=== PATIENT | female | born 1995 | race Hispanic/Latino ===

== ENCOUNTER 2018-10-11 21:50 | Inpatient (IN) | payer BC, SELFPAY ==
[2018-10-11 22:50] LABS: Absolute Lymphocytes (CBC) 2.4 K/uL (0.7-4.9); Absolute Monocytes 1.2 K/uL (0.1-1.3); Absolute Neutrophil 12.1 K/uL (1.8-8.0); Basophils % 0.4 % (0-1.3); Eosinophils % 0.4 % (0-4.4); Hematocrit 41.1 % (36.0-45.0); MCH 26.6 pg (27.0-35.0); MCV 80.3 fL (80-100); MPV 7.7 fL (7.6-11.3); Monocytes % 7.6 % (3.3-12.3); RBC Red Blood Cell Count 5.13 M/uL (3.86-4.86); Urine Bacteria LOADED /HPF (<20); Urine Culture Reflex Order NOT NEEDED; Urine RBC 20-50 /HPF (NONE SEEN)
[2018-10-11 22:55] LABS: Urine Blood 2+ (NEG); Urine Glucose NEGATIVE (NEG); Urine Protein 2+ (NEG)
[2018-10-11 23:08] LABS: Albumin 3.9 g/dL (3.4-5.0); Bilirubin Direct 0.1 mg/dL (0-0.2); Bilirubin Total 0.5 mg/dL (0.2-1.0); Potassium 3.3 mmol/L (3.5-5.1); Protein, Total 8.1 g/dL (6.4-8.2)
[2018-10-11] MEDS ORDERED: NA CHLORIDE 0.9% 1,000 ML ONE (23:14)
[2018-10-11] MEDS ORDERED: PROMETHAZINE 25 MG/ML VIAL ONE (23:14)
[2018-10-11] MEDS ORDERED: CEFTRIAXONE/SWI 1gm 1 GM/10 ML SYR ONE (23:27)
[2018-10-12] MEDS ORDERED: NA CHLORIDE 0.9% 1,000 ML ONE (00:41)
--- NOTE | 2018-10-12 01:16 | ER ---
Nurse's Notes [facility] Name: Alida Marcos Age: 23 yrs Sex: Female : 1995 Arrival Date: 10/11/2018 Time: 21:52 Bed 24 Private MD: Diagnosis: PYELONEPHRITIS;Lobulated, fused and horseshoe kidney Presentation: 10/11 22:14 Presenting complaint: Patient states: Abdominal pain in the epigastric area that aj1 radiates to the chest and vomiting for the past 3 days. Patient states that she was seen at the ER at [facility], they did some blood work, and she was diagnosed with a UTI and sent home for Rx for antibiotics and nausea medication, but she could not find a pharmacy to fill them. Patient states that she is still having a lot of pain, and nobody has told her what is causing her pain. Transition of care: patient was not received from another setting of care. Onset of symptoms was October 08, 2018. Risk Assessment: Do you want to hurt yourself or someone else? Patient reports no desire to harm self or others. Initial Sepsis Screen: Does the patient meet any 2 criteria? No. Patient's initial sepsis screen is negative. Does the patient have a suspected source of infection? Yes: Acute abdominal pain. Care prior to arrival: None. 22:14 Method Of Arrival: Ambulatory aj1 22:14 Acuity: SUSHILA 3 aj1 Triage Assessment: 22:17 General: Appears in no apparent distress. uncomfortable, Behavior is calm, cooperative, aj1 appropriate for age. Pain: Complains of pain in xyphoid area, mid-sternal area and epigastric area Pain currently is 8 out of 10 on a pain scale. Neuro: Level of Consciousness is awake, alert, obeys commands. Cardiovascular: Patient's skin is warm and dry. Respiratory: Airway is patent Respiratory effort is even, unlabored, Respiratory pattern is regular, symmetrical. GI: Reports upper abdominal pain, nausea, vomiting. 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 - Social history:: Smoking status: Patient uses tobacco products, denies chronic smoking, but will smoke occasionally. - Ebola Screening: : Patient denies travel to an Ebola-affected area in the 21 days before illness onset. Screenin:32 Abuse screen: Denies threats or abuse. Denies injuries from another. Nutritional rv screening: No deficits noted. Tuberculosis screening: No symptoms or risk factors identified. Fall Risk None identified. Assessment: 23:31 General: Appears in no apparent distress. uncomfortable, Behavior is calm, cooperative. rv Pain: Complains of pain in abdomen. Neuro: Level of Consciousness is awake, alert, obeys commands, Oriented to person, place, time, situation. Cardiovascular: Capillary refill < 3 seconds. Respiratory: Airway is patent. GI: Abdomen is round. : No signs and/or symptoms were reported regarding the genitourinary system. EENT: No signs and/or symptoms were reported regarding the EENT system. Derm: Skin is intact. Musculoskeletal: No signs and/or symptoms reported regarding the musculoskeletal system. 10/12 01:32 Reassessment: Patient appears in no apparent distress at this time. patient for rv admission. awaiting orders. Vital Signs: 10/11 22:17 BP 141 / 100; Pulse 72; Resp 18; Temp 98.0; Pulse Ox 100% on R/A; Height 5 ft. 2 in. aj1 (157.48 cm) (R); Pain 8/10; 23:33 BP 131 / 89; Pulse 72 MON; Resp 16 S; Pulse Ox 95% on R/A; rv 10/12 00:13 BP 130 / 73; Pulse 59 MON; Resp 15 S; Pulse Ox 96% on R/A; rv 01:32 BP 122 / 64; Pulse 69 MON; Resp 15 S; Pulse Ox 96% on R/A; rv 02:36 BP 142 / 86; Pulse 68; Resp 16; Pulse Ox 98% on R/A; rv ED Course: 10/11 21:30 Inserted saline lock: 20 gauge in left antecubital area, using aseptic technique. Blood rv collected. 21:30 Initial lab(s) drawn, by me, sent to lab. rv 21:52 Patient arrived in ED. es 22:17 Triage completed. aj1 22:17 Arm band placed on Patient placed in an exam room. aj1 22:23 Nini Brannon FNP-C is PHCP. snw 22:23 Jeannie Garcia MD is Attending Physician. snw 22:44 Radiology exam delayed due to test not completed at this time. bq 23:31 Urine Culture Sent. rv 23:32 Patient has correct armband on for positive identification. Bed in low position. Call rv light in reach. Side rails up X 1. Adult w/ patient. Pulse ox on. NIBP on. 23:[address] via wheelchair. kw1 10/12 00:00 CT completed. Patient tolerated procedure well. Patient moved back from CT. kw1 00:01 CT completed. Patient tolerated procedure well. Patient moved back from CT. kw1 00:02 CT Stone Protocol In Process Unspecified. EDMS 01:14 Meg Erickson MD is Hospitalizing Provider. snw 02:36 No provider procedures requiring assistance completed. Patient admitted, IV remains in rv place. intact. Administered Medications: 10/11 23:16 Drug: NS 0.9% 1000 ml Route: IV; Rate: 1 bolus; Site: left antecubital; rv 10/12 00:37 Follow up: IV Status: Completed infusion rv 10/11 23:16 Drug: Phenergan 12.5 mg Route: IVP; Site: left antecubital; rv 1216 00:37 Follow up: Response: Pain is decreased rv 10/11 23:22 Drug: Rocephin 1 grams Route: IV; Rate: calculated rate; Site: left antecubital; rv 1216 00:36 Follow up: IV Status: Completed infusion rv 00:37 Drug: NS 0.9% 1000 ml Route: IV; Rate: 125 ml/hr; Site: left antecubital; rv 02:37 Follow up: IV Status: Infusion continued upon admission rv 02:10 Drug: Phenergan 6.25 mg Route: IVP; Site: left antecubital; rv 02:37 Follow up: Response: Medication administered at discharge. rv Outcome: 01:16 Decision to Hospitalize by Provider. snw 02:37 Admitted to Tele accompanied by nurse, via wheelchair, room 410, with chart, Report rv called to hood 02:37 Condition: good 02:37 Instructed on the need for admit. 02:44 Patient left the ED. rv Signatures: Dispatcher [employer] Phoebe Hodge RN RN aj1 Nini Brannon, [employer] SERVICE TECHNICIAN-C [employer] SERVICE TECHNICIAN-Csnw Nury Zavala Betty bq Wilhelm, Kimberly kw1 Kevin Warren, RN RN rv
--- NOTE | 2018-10-12 01:16 | EDPHYS ---
Physician Documentation [facility] Name: Alida Marcos Age: 23 yrs Sex: Female : 1995 Arrival Date: 10/11/2018 Time: 21:52 Bed 24 Private MD: ED Physician Jeannie Garcia HPI: 10/11 22:43 This 23 yrs old Female presents to ER via Ambulatory with complaints of snw Vomiting, Abdominal Pain. 22:43 The patient presents to the emergency department with nausea, vomiting. Onset: The snw symptoms/episode began/occurred suddenly. Possible causes: unknown. The symptoms are aggravated by nothing. Associated signs and symptoms: Pertinent positives: abdominal pain, nausea. Severity of symptoms: At their worst the symptoms were moderate severe. It is unknown whether or not the patient has had similar symptoms in the past. Pt left [facility] ED about an hour ago. States she felt worse than when she left and started vomiting as soon as she got home. Pt came here instead.. 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 - Social history:: Smoking status: Patient uses tobacco products, denies chronic smoking, but will smoke occasionally. - Ebola Screening: : Patient denies travel to an Ebola-affected area in the 21 days before illness onset. ROS: 22:43 Constitutional: Negative for fever, chills, and weight loss, Eyes: Negative for injury, snw pain, redness, and discharge, ENT: Negative for injury, pain, and discharge, Neck: Negative for injury, pain, and swelling, Cardiovascular: Negative for chest pain, palpitations, and edema, Respiratory: Negative for shortness of breath, cough, wheezing, and pleuritic chest pain, Back: Negative for injury and pain, : Negative for injury, bleeding, discharge, and swelling, MS/Extremity: Negative for injury and deformity, Skin: Negative for injury, rash, and discoloration, Neuro: Negative for headache, weakness, numbness, tingling, and seizure. 22:43 Abdomen/GI: Positive for abdominal pain, nausea and vomiting, abdominal cramps, hematemesis. Exam: 22:42 Constitutional: This is a well developed, well nourished patient who is awake, alert, snw and in no acute distress. Head/Face: Normocephalic, atraumatic. Eyes: Pupils equal round and reactive to light, extra-ocular motions intact. Lids and lashes normal. Conjunctiva and sclera are non-icteric and not injected. Cornea within normal limits. Periorbital areas with no swelling, redness, or edema. ENT: Nares patent. No nasal discharge, no septal abnormalities noted. Tympanic membranes are normal and external auditory canals are clear. Oropharynx with no redness, swelling, or masses, exudates, or evidence of obstruction, uvula midline. Mucous membranes moist. Neck: Trachea midline, no thyromegaly or masses palpated, and no cervical lymphadenopathy. Supple, full range of motion without nuchal rigidity, or vertebral point tenderness. No Meningismus. Chest/axilla: Normal chest wall appearance and motion. Nontender with no deformity. No lesions are appreciated. Cardiovascular: Regular rate and rhythm with a normal S1 and S2. No gallops, murmurs, or rubs. Normal PMI, no JVD. No pulse deficits. Abdomen/GI: Soft, tender, with normal bowel sounds. No distension or tympany. No guarding or rebound. No evidence of tenderness throughout. + active vomiting Back: No spinal tenderness. No costovertebral tenderness. Full range of motion. Skin: Warm, dry with normal turgor. Normal color with no rashes, no lesions, and no evidence of cellulitis. MS/ Extremity: Pulses equal, no cyanosis. Neurovascular intact. Full, normal range of motion. Neuro: Awake and alert, GCS 15, oriented to person, place, time, and situation. Cranial nerves II-XII grossly intact. Motor strength 5/5 in all extremities. Sensory grossly intact. Cerebellar exam normal. Normal gait. Psych: Awake, alert, with orientation to person, place and time. Behavior, mood, and affect are within normal limits. 22:42 Respiratory: the patient does not display signs of respiratory distress, Respirations: normal, Breath sounds: are clear throughout. Vital Signs: 22:17 BP 141 / 100; Pulse 72; Resp 18; Temp 98.0; Pulse Ox 100% on R/A; Height 5 ft. 2 in. aj1 (157.48 cm) (R); Pain 8/10; 23:33 BP 131 / 89; Pulse 72 MON; Resp 16 S; Pulse Ox 95% on R/A; rv 12 00:13 BP 130 / 73; Pulse 59 MON; Resp 15 S; Pulse Ox 96% on R/A; rv 01:32 BP 122 / 64; Pulse 69 MON; Resp 15 S; Pulse Ox 96% on R/A; rv 02:36 BP 142 / 86; Pulse 68; Resp 16; Pulse Ox 98% on R/A; rv MDM: 10/11 22:25 Patient medically screened. snw 10/12 01:16 Data reviewed: vital signs, nurses notes. Data interpreted: Pulse oximetry: on room air snw is 96 %. Interpretation: acceptable. Counseling: I had a detailed discussion with the patient and/or guardian regarding: the historical points, exam findings, and any diagnostic results supporting the discharge/admit diagnosis, lab results, radiology results, the need for further work-up and treatment in the hospital. Physician consultation: Meg Erickson MD was called at 01:16, was contacted at 01:16, regarding admission, to the telemetry unit. 10/11 21:56 Order name: Urine Culture [facility] 10/11 21:56 Order name: Urine Microscopic Only; Complete Time: 22:56 snw 10/11 22:24 Order name: Basic Metabolic Panel; Complete Time: 23:14 snw 10/11 22:24 Order name: CBC with Diff; Complete Time: 22:56 snw 10/11 22:24 Order name: Hepatic Function; Complete Time: 23:14 snw 10/11 22:24 Order name: Lipase; Complete Time: 23:14 snw 10/11 22:24 Order name: Blood Culture Adult (2) snw 10/11 22:34 Order name: Urine Dipstick--Ancillary (enter results); Complete Time: 22:56 ar5 10/11 22:35 Order name: CT Stone Protocol [facility] 10/11 21:56 Order name: Urine Test (obtain specimen); Complete Time: 23:31 snw 10/11 21:56 Order name: Urine Dipstick-Ancillary (obtain specimen); Complete Time: 23:31 snw 12/15 22:24 Order name: IV Saline Lock; Complete Time: 23:31 snw 10/11 22:24 Order name: Labs collected and sent; Complete Time: 23:31 snw Administered Medications: 10/11 23:16 Drug: NS 0.9% 1000 ml Route: IV; Rate: 1 bolus; Site: left antecubital; rv 10/12 00:37 Follow up: IV Status: Completed infusion rv 10/11 23:16 Drug: Phenergan 12.5 mg Route: IVP; Site: left antecubital; rv 10/12 00:37 Follow up: Response: Pain is decreased rv 10/11 23:22 Drug: Rocephin 1 grams Route: IV; Rate: calculated rate; Site: left antecubital; rv 10/12 00:36 Follow up: IV Status: Completed infusion rv 00:37 Drug: NS 0.9% 1000 ml Route: IV; Rate: 125 ml/hr; Site: left antecubital; rv 02:37 Follow up: IV Status: Infusion continued upon admission rv 02:10 Drug: Phenergan 6.25 mg Route: IVP; Site: left antecubital; rv 02:37 Follow up: Response: Medication administered at discharge. rv Disposition: 03:00 Co-signature as Attending Physician, Jeannie Garcia MD. ma2 Disposition: 10/12/18 01:16 Hospitalization ordered by Meg Erickson for Inpatient Admission. Preliminary diagnosis are PYELONEPHRITIS, Lobulated, fused and horseshoe kidney. - Bed requested for Telemetry/MedSurg (Inpatient). - Status is Inpatient Admission. rv - Condition is Stable. - Problem is new. - Symptoms have worsened. UTI on Admission? Yes Signatures: Dispatcher [employer] EDND Phoebe Cristobal RN RN aj1 Jolie Vivar RN RN kl Therrien, Shelly, COMPOSITION ROLL MAKER AND CUTTER-C COMPOSITION ROLL MAKER AND CUTTER-Csnw Jeannie Garcia MD MD ma2 Kevin Warren RN RN rv Corrections: (The following items were deleted from the chart) 01:16 01:16 Hospitalization Ordered by Meg Erickson MD for Observation. Preliminary snw diagnosis is PYELONEPHRITIS; Lobulated, fused and horseshoe kidney. Bed requested for Telemetry/MedSurg (Inpatient). Status is Observation. Condition is Stable. Problem is new. Symptoms have worsened. UTI on Admission? Yes. sn 02:06 01:16 10/12/2018 01:16 Hospitalization Ordered by Meg Erickson MD for Inpatient kl Admission. Preliminary diagnosis is PYELONEPHRITIS; Lobulated, fused and horseshoe kidney. Bed requested for Telemetry/MedSurg (Inpatient). Status is Inpatient Admission. Condition is Stable. Problem is new. Symptoms have worsened. UTI on Admission? Yes. [facility] 02:44 02:06 10/12/2018 01:16 Hospitalization Ordered by Meg Erickson MD for Inpatient rv Admission. Preliminary diagnosis is PYELONEPHRITIS; Lobulated, fused and horseshoe kidney. Bed requested for Telemetry/MedSurg (Inpatient). Status is Inpatient Admission. Condition is Stable. Problem is new. Symptoms have worsened. UTI on Admission? Yes. kl
--- NOTE | 2018-10-12 01:58 | P.HP ---
Certification for Inpatient Patient admitted to: Inpatient With expected LOS: >2 Midnights Practitioner: I am a practitioner with admitting privileges, knowledge of patient current condition, hospital course, and medical plan of care. Services: Services provided to patient in accordance with Admission requirements found in Title 42 Section 412.3 of the Code of Federal Regulations Patient History Date of Service: 10/12/18 Reason for admission: pyelonephritis History of Present Illness: Ms Marcos is a 23 years old woman who start about 2 days ago with abdominal pain , localized in epigastric area associated with nausea and vomiting, burning urination and weakness. She denied fever or chills. The patient was not able to keep food down due to persistent vomiting. Last night, she went to [facility] [place] and was diagnosed with UTI, she was discharged home with oral antibiotics. She was not able to fill the parescription due to was late and could not found an open pharmacy. She came to ED for further evaluation due to persistent nausea and vomiting. Lab work was remarkable for leukocytosis 15.8K hypokalemia 3.3. CT abd/pelvis shows a horseshoe kidney, with strending fat and bilateral mild hydronephrosis. No signs of obstructive stone. Home medications list reviewed: Yes - Past Medical/Surgical History Past Medical History: Reviewed- Non-Contributory Past Surgical History: Reviewed- Non-Contributory - Social History Smoking Status: Current some day smoker Counseled patient to stop smoking for: less than 10 minutes Alcohol use: Yes CD- Drugs: No Place of Residence: Home Review of Systems 10-point ROS is otherwise unremarkable Physical Examination - Physical Exam General: Alert, In no apparent distress HEENT: Atraumatic, PERRLA, Mucous membr. moist/pink, EOMI, Sclerae nonicteric Neck: Supple, 2+ carotid pulse no bruit, No LAD, Without JVD or thyroid abnormality Respiratory: Clear to auscultation bilaterally, Normal air movement Cardiovascular: Regular rate/rhythm, Normal S1 S2 Gastrointestinal: Normal bowel sounds, Tenderness (diffuse) Musculoskeletal: No tenderness Integumentary: No rashes Neurological: Normal speech, Normal strength at 5/5 x4 extr, Normal tone, Normal affect Lymphatics: No axilla or inguinal lymphadenopathy - Studies Laboratory Data (last 24 hrs) 10/11/18 22:30: WBC 15.8 H, Hgb 13.6, Hct 41.1, Plt Count 389 10/11/18 22:30: Sodium 138, Potassium 3.3 L, BUN 12, Creatinine 0.90, Glucose 123 H, Total Bilirubin 0.5, AST 14 L, ALT 22, Alkaline Phosphatase 79, Lipase 99 Assessment and Plan - Problems (Diagnosis) (1) Pyelonephritis Current Visit: Yes Status: Acute (2) Hypokalemia Current Visit: Yes Status: Acute - Plan The patient will be admitted to the hospital due to pyelonephritis. Will start empiric treatment with IV Levaquin. Blood and Urine culture in process. - Advance Directives Does patient have a Living Will: No Does patient have a Durable POA for Healthcare: No - Code Status/Comfort Care Code Status Assessed: Yes Code Status: Full Code
[2018-10-12] MEDS ORDERED: PROMETHAZINE 25 MG/ML VIAL ONE (02:18)
[2018-10-12 03:01] VITALS: O2SAT 98
[2018-10-12 03:22] VITALS: BMI 39.2
[2018-10-12] MEDS ORDERED: ONDANSETRON 4 MG/2 ML VIAL IV PRN (03:39)
[2018-10-12] MEDS ORDERED: ACETAMINOPHEN 500 MG TAB PO PRN (03:39)
[2018-10-12] MEDS ORDERED: Levofloxacin 750mg IV 750 MG/150 ML BAG IV SCH (04:00)
[2018-10-12] MEDS: KETOROLAC 30 MG/ML INJ IV PRN ×2 (04:01→16:06)
--- NOTE | 2018-10-12 06:46 | RAD REPORT ---
EXAM DESCRIPTION: CT - Stone Protocol - 10/12/2018 2:23 am CLINICAL HISTORY: Abdominal pain. Epigastric pain and vomiting COMPARISON: None. TECHNIQUE: Computed axial tomography of the abdomen pelvis was obtained without oral or IV contrast. Lack of IV and oral contrast limits evaluation of solid organs, bowel, and vessels. Coronal reformat millie images were obtained and reviewed. Preliminary report generated by virtual radiologic and reviewed prior to dictation All CT scans are performed using dose optimization technique as appropriate and may include automated exposure control or mA/KV adjustment according to patient size. FINDINGS: Horseshoe kidney. Extrarenal pelves. Tiny nonobstructing renal calculi. Ureteral calculus is not seen. A bladder calculus is not noted The liver, spleen, pancreas and adrenals appear grossly normal There is no evidence of diverticulitis. The appendix appears normal IMPRESSION: Horseshoe kidney with tiny nonobstructing renal calculi
[2018-10-12] MEDS ORDERED: HYDROCODONE/APAP 7.5/325 MG TAB PO PRN (07:02)
[2018-10-12] MEDS ORDERED: TRAMADOL HCL 50 MG TAB PO PRN (07:02)
[2018-10-12] MEDS ORDERED: POTASSIUM CL SA 10 MEQ TAB PO ONE ×2 (07:15→14:00)
[2018-10-12] MEDS: ONDANSETRON 4 MG/2 ML VIAL IV PRN ×2 (07:58→15:59)
[2018-10-12] MEDS ORDERED: POTASSIUM 25 MEQ EFFERV TAB PO ONE (09:00)
[2018-10-12] MEDS: ENOXAPARIN 40 MG/0.4 ML SQ SCH (09:15)
[2018-10-12] MEDS: CEFTRIAXONE/SWI 1gm 1 GM/10 ML SYR IVP SCH (09:16)
--- NOTE | 2018-10-12 09:55 | P.PN ---
Subjective Date of Service: 10/12/18 Primary Care Provider: None Chief Complaint: pyelonephritis Subjective: Other (Patient with nausea this morning) Physical Examination - Vital Signs Temperature: 98.2 F Blood Pressure: 149/98 Pulse: 77 Respirations: 20 Pulse Ox (%): 99 - Physical Exam General: Alert, In no apparent distress, Oriented x3, Cooperative HEENT: Atraumatic Neck: Supple Respiratory: Clear to auscultation bilaterally, Normal air movement Cardiovascular: Normal pulses, Regular rate/rhythm Gastrointestinal: Normal bowel sounds, Soft and benign, Non-distended, No tenderness, No masses, No rebound, No guarding Musculoskeletal: No erythema, No tenderness, No warmth Integumentary: No tenderness/swelling, No erythema, No warmth, No cyanosis Neurological: Normal speech, Normal strength at 5/5 x4 extr, Normal tone, Normal affect - Studies Laboratory Data (last 24 hrs) 10/11/18 22:30: WBC 15.8 H, Hgb 13.6, Hct 41.1, Plt Count 389 10/11/18 22:30: Sodium 138, Potassium 3.3 L, BUN 12, Creatinine 0.90, Glucose 123 H, Total Bilirubin 0.5, AST 14 L, ALT 22, Alkaline Phosphatase 79, Lipase 99 Medications List Reviewed: Yes Assessment & Plan Discharge Plan: Home Plan to discharge in: 24 Hours Physician Review Additional Text: Impression: Acute pyelonephritis with noted horseshoe kidney and tiny nonobstructive calculi Elevated blood pressure Obesity, BMI 39 Nausea and vomiting likely related to pyelonephritis Hypokalemia Plan: Acute pyelonephritis with noted horseshoe kidney and tiny nonobstructive calculi : Will change Levaquin to Rocephin. Continue IV fluids. Encourage oral intake. Will provide incentive spirometer. Encourage ambulation. Will recheck lab again today. Patient desires to go home. If much improved later today will consider discharge if not likely tomorrow. Urine and blood cultures pending at this time. Elevated blood pressure: Blood pressure elevated. No history of hypertension. Will continue to monitor closely. If this remains elevated patient may require medication at discharge. Obesity, BMI 39: Lifestyle modification education will be provided. Nausea and vomiting likely related to pyelonephritis: Will provide medication for nausea. Encourage oral intake. Will reassess. Hypokalemia: Likely related to nausea and vomiting. Will replace appropriately. Time Spent Managing Pts Care (In Minutes): 55
[2018-10-12 12:38] LABS: Magnesium 2.6 mg/dL (1.8-2.4); Potassium 3.9 mmol/L (3.5-5.1)
[2018-10-12 13:22] LABS: Absolute Lymphocytes (CBC) 3.1 K/uL (0.7-4.9); Absolute Monocytes 0.9 K/uL (0.1-1.3); Absolute Neutrophil 9.1 K/uL (1.8-8.0); Basophils % 0.2 % (0-1.3); Eosinophils % 0.4 % (0-4.4); Hematocrit 37.4 % (36.0-45.0); Lymphocytes % 23.7 % (15.3-44.8); MCH 27.2 pg (27.0-35.0); MCV 80.2 fL (80-100); MPV 7.9 fL (7.6-11.3); Monocytes % 7.1 % (3.3-12.3); RBC Red Blood Cell Count 4.66 M/uL (3.86-4.86)
[2018-10-12] MEDS ORDERED: PROMETHAZINE 25 MG/ML VIAL IV ONE (18:40)
[2018-10-13] MEDS: KETOROLAC 30 MG/ML INJ IV PRN ×2 (00:18→06:33)
[2018-10-13] MEDS: ONDANSETRON 4 MG/2 ML VIAL IV PRN ×3 (00:18→12:15)
[2018-10-13 06:34] LABS: Absolute Lymphocytes (CBC) 3.3 K/uL (0.7-4.9); Absolute Monocytes 1.1 K/uL (0.1-1.3); Absolute Neutrophil 6.4 K/uL (1.8-8.0); Basophils % 0.2 % (0-1.3); Eosinophils % 0.8 % (0-4.4); Hematocrit 39.1 % (36.0-45.0); MCH 27.9 pg (27.0-35.0); MCV 79.8 fL (80-100); MPV 7.5 fL (7.6-11.3); Monocytes % 10.2 % (3.3-12.3)
[2018-10-13 06:37] LABS: Magnesium 2.5 mg/dL (1.8-2.4)
[2018-10-13 07:08] LABS: Barbiturates NEGATIVE (NEGATIVE); Benzodiazepines NEGATIVE (NEGATIVE); Cocaine NEGATIVE (NEGATIVE); METHAMPHETAM NEGATIVE (NEGATIVE); Methadone NEGATIVE (NEGATIVE); Opiates NEGATIVE (NEGATIVE); Phencyclidine NEGATIVE (NEGATIVE); THC Cannibis NEGATIVE (NEGATIVE)
[2018-10-13] MEDS: ENOXAPARIN 40 MG/0.4 ML SQ SCH (08:35)
[2018-10-13] MEDS: CEFTRIAXONE/SWI 1gm 1 GM/10 ML SYR IVP SCH (08:39)
[2018-10-13 09:25] VITALS: TEMP 97.8
--- NOTE | 2018-10-13 09:34 | P.DS ---
Admission Date: 10/12/18 Discharge Date: 10/13/18 Primary Care Provider: None Disposition: ROUTINE DISCHARGE Discharge Condition: GOOD Reason for Admission: pyelonephritis Consultations: none Procedures: CT scan: COMPARISON: None. TECHNIQUE: Computed axial tomography of the abdomen pelvis was obtained without oral or IV contrast. Lack of IV and oral contrast limits evaluation of solid organs, bowel, and vessels. Coronal reformatted images were obtained and reviewed. Preliminary report generated by [employer] and reviewed prior to dictation All CT scans are performed using dose optimization technique as appropriate and may include automated exposure control or mA/KV adjustment according to patient size. FINDINGS: Horseshoe kidney. Extrarenal pelves. Tiny nonobstructing renal calculi. Ureteral calculus is not seen. A bladder calculus is not noted The liver, spleen, pancreas and adrenals appear grossly normal There is no evidence of diverticulitis. The appendix appears normal IMPRESSION: Horseshoe kidney with tiny nonobstructing renal calculi Medical Problem list: Acute pyelonephritis with noted horseshoe kidney and tiny nonobstructive calculi prior CT scan, urine culture positive for enterobacter Elevated blood pressure Obesity, BMI 39 Nausea and vomiting likely related to pyelonephritis Hypokalemia GERD Anxiety Brief History of Present Illness: 23-year-old female presented to emergency room with increased nausea and vomiting with noted UTI. Patient had been seen at [facility] and prescribed antibiotic therapy. She was not able to get medication. Patient found to have possible pyelonephritis patient admitted for treatment Hospital Course: Patient presented with acute pyelonephritis with noted horseshoe kidney and tiny nonobstructive calculi on CT scan. During the course of her stay her condition improved. White count within normal range at discharge. Urine culture positive for enterobacter. At discharge patient will continue with Bactrim DS 1 pill twice daily for 14 days. UTI prevention education provided. Education on horseshoe kidney and renal calculi also provided. Recommendation is to recheck urine culture after treatment to monitor resolution. Patient may benefit with urology evaluation as an outpatient to further address. Patient had nausea and vomiting during the course of her stay. Patient received IV fluids. At times patient appeared to be self inducing vomiting. This was witnessed. This to be monitored closely as an outpatient. Patient denies history of bulimia. Patient had increase anxiety. Recommendation is for the patient follow up with her PCP to further address. Patient may benefit with evaluation for underlying anxiety disorder. Will provide medication- Zofran 4 mg 3 times a day as needed for nausea. Patient likely has GERD. Patient will continue with Protonix 40 mg 1 pill once daily. Patient with obesity, BMI 39. Lifestyle modification education will be provided. Patient had elevated blood pressure likely related to illness and nausea and vomiting. Recommendation is to monitor her blood pressures daily at home. If her blood pressure remains above 140/90 consistently she is to contact her PCP for further recommendation. Patient may require medication in the future. Vital Signs/Physical Exam: Temp Pulse Resp BP Pulse Ox 97.8 F 68 18 118/55 L 99 10/13/18 08:00 10/13/18 08:00 10/13/18 08:00 10/13/18 04:00 10/13/18 08:00 General: Alert, In no apparent distress, Oriented x3, Cooperative, Other ( Patient with increased anxiety and emotional at times) HEENT: Atraumatic Neck: Supple Respiratory: Clear to auscultation bilaterally, Normal air movement Cardiovascular: Normal pulses, Regular rate/rhythm Gastrointestinal: Normal bowel sounds, Soft and benign, Non-distended, No tenderness, No masses, No rebound, No guarding Musculoskeletal: No erythema, No tenderness, No warmth Integumentary: No tenderness/swelling, No erythema, No warmth, No cyanosis Neurological: Normal speech, Normal strength at 5/5 x4 extr, Normal tone, Abnormal affect (Increased anxiety) Laboratory Data at Discharge: WBC 10.9 K/uL (4.3-10.9) D 10/13/18 06:09 Hgb 13.7 g/dL (12.0-15.0) 10/13/18 06:09 Hct 39.1 % (36.0-45.0) 10/13/18 06:09 Plt Count 384 K/uL (152-406) 10/13/18 06:09 Sodium 140 mmol/L (136-145) 10/13/18 06:09 Potassium 4.0 mmol/L (3.5-5.1) 10/13/18 06:09 BUN 10 mg/dL (7-18) 10/13/18 06:09 Creatinine 0.90 mg/dL (0.55-1.3) 10/13/18 06:09 Glucose 90 mg/dL (74-106) 10/13/18 06:09 Magnesium 2.5 mg/dL (1.8-2.4) H 10/13/18 06:09 Total Bilirubin 0.5 mg/dL (0.2-1.0) 10/11/18 22:30 AST 14 U/L (15-37) L 10/11/18 22:30 ALT 22 U/L (12-78) 10/11/18 22:30 Alkaline Phosphatase 79 U/L (45-117) 10/11/18 22:30 Lipase 99 U/L (73-393) 10/11/18 22:30 Home Medications: Ondansetron HCl [Zofran] 4 mg PO TID PRN #5 tablet 10/12/18 Pantoprazole [Protonix Tab] 40 mg PO DAILY #30 tab 10/13/18 Sulfamethoxazole/Trimethoprim [Bactrim Ds Tablet] 1 each PO BID #28 tablet 10/13 New Medications: Ondansetron HCl [Zofran] 4 mg PO TID PRN #5 tablet PRN Reason: Nausea Pantoprazole [Protonix Tab] 40 mg PO DAILY #30 tab Sulfamethoxazole/Trimethoprim [Bactrim Ds Tablet] 1 each PO BID #28 tablet Patient Discharge Instructions: 1. Patient will need to follow up and establish care with a PCP to follow up this hospitalization. 2. Patient presented with acute pyelonephritis with noted horseshoe kidney and tiny nonobstructive calculi on CT scan. During the course of her stay her condition improved. White count within normal range at discharge. Urine culture positive for enterobacter. At discharge patient will continue with Bactrim DS 1 pill twice daily for 14 days. UTI prevention education provided. Education on horseshoe kidney and renal calculi also provided. Recommendation is to recheck urine culture after treatment to monitor resolution. Patient may benefit with urology evaluation as an outpatient to further address. 3. Patient had nausea and vomiting during the course of her stay. Patient received IV fluids and medication. This may be complicated with underlying anxiety. Recommendation is for the patient follow up with her PCP to further address. Patient may benefit with evaluation for underlying anxiety disorder. Will provide medication-Zofran 4 mg 3 times a day as needed for nausea. 4. Patient likely has GERD. Patient will continue with Protonix 40 mg 1 pill once daily. 5. Patient with obesity, BMI 39. Lifestyle modification education will be provided. 6. Patient had elevated blood pressure likely related to illness and nausea and vomiting. Recommendation is to monitor her blood pressures daily at home. If her blood pressure remains above 140/90 consistently she is to contact her PCP for further recommendation. Patient may require medication in the future. Diet: GI soft Activity: Ad khalif Time spent managing pt's care (in minutes): 55
[2018-10-13 13:58] VITALS: BP 136/82
== END 2018-10-13 13:10 | disposition home or self-care (01) | DRG 690 ==
LOC: ER 21:50 → ERHOLD 10-12 01:49 → 4TH 10-12 02:41
PROVIDERS: ADMIT Internal Medicine; ATTEND Family Medicine
DX: N10 Acute pyelonephritis (principal); N13.6 Pyonephrosis; B96.89 Other specified bacterial agents as the cause of diseases classified elsewhere; Q63.1 Lobulated, fused and horseshoe kidney; N20.0 Calculus of kidney; R03.0 Elevated blood-pressure reading, without diagnosis of hypertension; E66.01 Morbid (severe) obesity due to excess calories; Z68.39 Body mass index [BMI] 39.0-39.9, adult; E87.6 Hypokalemia; R11.2 Nausea with vomiting, unspecified; K21.9 Gastro-esophageal reflux disease without esophagitis; F41.9 Anxiety disorder, unspecified; F17.210 Nicotine dependence, cigarettes, uncomplicated
CPT/HCPCS: 36415; 74176; 76377; 80048; 80076; 80307; 81003; 81015; 83690; 83735; 84132; 84145; 85025; 87040; 87077; 87086; 87088; 87186; 96361; 96365; 96375; 99285; J0696; J1650; J2405; J2550; J7030

== ENCOUNTER 2019-07-12 09:07 | Emergency (ER) | payer BC ==
--- OUTSIDE RECORDS SUMMARY | 2019-07-12 09:09 | XMS REPORT ---
:1995 [facility] Address [address] [place] [address] Dr. Garcia. [address] [place] [id number] Care Team Providers Name Role Phone Unavailable Unavailable Unavailable Problems This patient has no known problems. Allergies, Adverse Reactions, Alerts This patient has no known allergies or adverse reactions. Medications This patient has no known medications.
[2019-07-12] MEDS ORDERED: FAMOTIDINE 20 MG/2 ML VIAL IV ONE (09:45)
[2019-07-12] MEDS ORDERED: KETOROLAC 30 MG/ML INJ ONE (09:45)
[2019-07-12] MEDS ORDERED: ONDANSETRON 4 MG/2 ML VIAL ONE (09:45)
[2019-07-12] MEDS ORDERED: NA CHLORIDE 0.9% 1,000 ML ONE (09:45)
[2019-07-12 09:51] LABS: Absolute Lymphocytes (CBC) 2.4 K/uL (0.7-4.9); Basophils % 0.4 % (0-1.3); Hematocrit 38.9 % (36.0-45.0); MPV 7.8 fL (7.6-11.3); RBC Red Blood Cell Count 4.78 M/uL (3.86-4.86)
[2019-07-12 10:04] LABS: ALT/SGPT 28 U/L (12-78); AST/SGOT 13 U/L (15-37); Alkaline Phosphatase 77 U/L (45-117); BUN Blood Urea Nitrogen 13 mg/dL (7-18); Bicarbonate 24 mmol/L (21-32); Bilirubin Direct < 0.1 mg/dL (0-0.2); Bilirubin Total 0.2 mg/dL (0.2-1.0); Glucose Level 97 mg/dL (74-106); Lipase 73 U/L (73-393); Potassium 3.9 mmol/L (3.5-5.1); Protein, Total 7.8 g/dL (6.4-8.2); Sodium Level 143 mmol/L (136-145)
[2019-07-12 10:53] LABS: Urine Blood 1+ (NEG); Urine Glucose NEGATIVE (NEG); Urine Protein NEGATIVE (NEG); Urine Specific Gravity 1.025 (1.005-1.030)
[2019-07-12] MEDS ORDERED: CEFTRIAXONE/SWI 1gm 1 GM/10 ML SYR ONE (11:14)
--- NOTE | 2019-07-12 11:27 | RAD REPORT ---
EXAM DESCRIPTION: CTAbdomen Pelvis W Contrast - 07/12/2019 11:03 am CLINICAL HISTORY: Abdominal pain. ABD PAIN COMPARISON: No comparisons TECHNIQUE: Biphasic CT imaging of the abdomen and pelvis was performed with 100 ml non-ionic IV cont rast. All CT scans are performed using dose optimization technique as appropriate and may include automated exposure control or mA/KV adjustment according to patient size. FINDINGS: The lung bases are clear. The liver, spleen, pancreas, adrenal glands are within normal limits. Horseshoe kidney noted without evidence of hydronephrosis. No bowel obstruction, free air, free fluid or abscess. The appendix is normal. No evidence of signi ficant lymphadenopathy. No suspicious bony findings. IMPRESSION: No acute intra-abdominal or pelvic finding.
--- NOTE | 2019-07-12 11:49 | ER ---
Nurse's Notes [facility] Name: Alida Marcos Age: 23 yrs Sex: Female : 1995 Arrival Date: 07/12/2019 Time: 09:10 Bed 13 Private MD: Diagnosis: Urinary tract infection, site not specified;Vomiting;Other chest pain Presentation: 07/12 09:20 Presenting complaint: Lower abdominal pain x 2 days, headache, subjective fever, and hb burning chest pain after vomiting this morning x 2. Transition of care: patient was not received from another setting of care. Onset of symptoms was July 11, 2019. Risk Assessment: Do you want to hurt yourself or someone else? Patient reports no desire to harm self or others. Initial Sepsis Screen: Does the patient meet any 2 criteria? No. Patient's initial sepsis screen is negative. Does the patient have a suspected source of infection? No. Patient's initial sepsis screen is negative. Care prior to arrival: None. 09:20 Method Of Arrival: Ambulatory hb 09:20 Acuity: SUSHILA 3 hb LINING BASTER: 09:22 LMP 07/08/2019 hb Historical: - Allergies: 09:22 No Known Allergies; hb - Immunization history:: Adult Immunizations up to date. - Social history:: Smoking status: Patient/guardian denies using tobacco. - Ebola Screening: : No symptoms or risks identified at this time. Screenin:30 Abuse screen: Denies threats or abuse. Denies injuries from another. Nutritional jl7 screening: No deficits noted. Tuberculosis screening: No symptoms or risk factors identified. Fall Risk IV access (20 points). Total Craig Fall Scale indicates No Risk (0-24 pts). Assessment: 09:25 General: Appears in no apparent distress. uncomfortable, well groomed, well developed, sv Behavior is calm, cooperative, appropriate for age. Pain: Complains of pain in back, chest and abdomen Pain currently is 7 out of 10 on a pain scale. Quality of pain is described as burning, Is intermittent, episodic. Neuro: Level of Consciousness is awake, alert, obeys commands, Oriented to person, place, time, situation, Moves all extremities. Full function Gait is steady, Speech is normal. Cardiovascular: Reports chest pain, vomiting. Respiratory: Respiratory effort is even, unlabored, Respiratory pattern is regular, symmetrical. GI: Abdomen is flat, Abd is soft and non tender X 4 quads. Reports nausea, vomiting. GI: Reports indigestion. Derm: Skin is pink, warm \T\ dry. 09:55 Reassessment: Patient appears in no apparent distress at this time. No changes from sv previously documented assessment. Patient and/or family updated on plan of care and expected duration. Pain level reassessed. Patient is alert, oriented x 3, equal unlabored respirations, skin warm/dry/pink. Pt reports taking 3 Advil before coming, informed Cam GALVEZ before administering Toradol. He stated ok to give. 11:00 Reassessment: Patient appears in no apparent distress at this time. No changes from sv previously documented assessment. Patient and/or family updated on plan of care and expected duration. Pain level reassessed. Patient is alert, oriented x 3, equal unlabored respirations, skin warm/dry/pink. 11:30 Reassessment: Patient appears in no apparent distress at this time. Patient and/or jl7 family updated on plan of care and expected duration. Pain level reassessed. Patient is alert, oriented x 3, equal unlabored respirations, skin warm/dry/pink. Vital Signs: 09:22 BP 141 / 94; Pulse 82; Resp 16; Temp 98.2(O); Pulse Ox 97% on R/A; Weight 87.09 kg; hb Height 5 ft. 2 in. (157.48 cm); Pain 7/10; 10:12 BP 123 / 77; Pulse 66; Resp 16; Pulse Ox 99% ; sv 12:05 BP 128 / 78; Pulse 70; Resp 16 S; Pulse Ox 100% on R/A; jl7 09:22 Body Mass Index 35.12 (87.09 kg, 157.48 cm) hb ED Course: 09:10 Patient arrived in ED. rg4 09:13 Cam Agosto PA is PHCP. cp 09:13 Augie Arguelles MD is Attending Physician. cp 09:20 Alejandrina Rogel, RN is Primary Nurse. hb 09:21 Triage completed. hb 09:22 Arm band placed on. hb 09:29 Isis Nelson, RN is Primary Nurse. sv 09:30 Initial lab(s) drawn, by me, sent to lab. Strep swab sent to lab. Inserted saline lock: sv 20 gauge in right antecubital area, using aseptic technique. Blood collected. Flushed right antecubital with 5 ml normal saline. 10:03 Strep Sent. sv 10:03 Basic Metabolic Panel Sent. sv 10:03 CBC with Diff Sent. sv 10:03 Creatinine for Radiology Sent. sv 10:03 Hepatic Function Sent. sv 10:03 Lipase Sent. sv 10:03 Urine --Ancillary (enter results) Sent. sv 10:03 Urine Dipstick--Ancillary (enter results) Sent. sv 10:22 Radiology exam delayed due to test not completed at this time. ka 10:41 Influenza Screen (a \T\ B) Sent. sv 10:[address] Scan. sv 11:30 Patient has correct armband on for positive identification. Placed in gown. Bed in low jl7 position. Call light in reach. Side rails up X 1. 12:05 No provider procedures requiring assistance completed. IV discontinued, intact, jl7 bleeding controlled, No redness/swelling at site. Pressure dressing applied. Administered Medications: 09:50 Drug: Pepcid 20 mg Route: IVP; Site: right antecubital; sv 10:30 Follow up: Response: No adverse reaction sv 11:33 Follow up: Response: No adverse reaction jl7 09:50 Drug: NS 0.9% 1000 ml Route: IV; Rate: 1 bolus; Site: right antecubital; sv 11:00 Follow up: Response: No adverse reaction; IV Status: Completed infusion; IV Intake: sv 1000ml 09:52 Drug: Zofran 4 mg Route: IVP; Site: right antecubital; sv 10:30 Follow up: Response: No adverse reaction sv 11:33 Follow up: Response: No adverse reaction jl7 10:00 Drug: TORadol 30 mg Route: IVP; Site: right antecubital; sv 11:00 Follow up: Response: No adverse reaction sv 11:32 Not Given (Wrong pharmacy order): Rocephin - (cefTRIAXone) 1 grams IVPB once over 30 jl7 mins; (mix in 50 mL NS) 11:33 Drug: Rocephin 1 grams Route: IV; Rate: calculated rate; Site: right antecubital; jl7 11:36 Follow up: Response: No adverse reaction; IV Status: Completed infusion jl7 Intake: 11:00 IV: 1000ml; Total: 1000ml. sv Outcome: 11:49 Discharge ordered by . willis 12:05 Discharged to home ambulatory. jl7 12:05 Condition: stable 12:05 Discharge instructions given to patient, Instructed on discharge instructions, follow up and referral plans. medication usage, Demonstrated understanding of instructions, follow-up care, medications, Prescriptions given X 3. 12:06 Patient left the ED. jl7 Signatures: Isis Nelson RN RN sv Cam Agosto PA PA cp Aguilera, Katelyn ka Baxter, Heather, RN RN Meche Grossman rg4 Jaquan Ferreira RN RN jl7 Corrections: (The following items were deleted from the chart) 09:22 09:20 Presenting complaint: Lower abdominal pain x 2 days, headache, subjective hb fever,burning chest pain after vomiting this morning x 2 hb 10:03 09:00 Pepcid 20 mg IVP in right antecubital sv sv
--- NOTE | 2019-07-12 11:50 | EDPHYS ---
Physician Documentation [facility] Name: Alida Marcos Age: 23 yrs Sex: Female : 1995 Arrival Date: 07/12/2019 Time: 09:10 Bed 13 Private MD: ED Physician Augei Arguelles HPI: 07/12 09:29 This 23 yrs old Female presents to ER via Ambulatory with complaints of cp Abdominal Pain, Back Pain, Chest Pain. 09:30 The patient presents with abdominal pain in the lower abdomen. cp 09:30 Onset: The symptoms/episode began/occurred 2 day(s) ago. The symptoms radiate to cp Associated signs and symptoms: Pertinent positives: chest pain, fever, headache, nausea, vomiting, cough, sore throat, Pertinent negatives: constipation, palpitations, shortness of breath. Modifying factors: the symptoms are aggravated by pressure. [employer]IVER: 09:22 LMP 07/08/2019 hb Historical: - Allergies: 09:22 No Known Allergies; hb - Immunization history:: Adult Immunizations up to date. - Social history:: Smoking status: Patient/guardian denies using tobacco. - Ebola Screening: : No symptoms or risks identified at this time. ROS: 09:35 Constitutional: Negative for body aches, chills, fever, poor PO intake. cp 09:35 Eyes: Negative for injury, pain, redness, and discharge. cp 09:35 ENT: Positive for sore throat, Negative for drainage from ear(s), ear pain, sinus congestion, sinus pain, difficulty swallowing, difficulty handling secretions. 09:35 Cardiovascular: Positive for chest pain, Negative for edema, palpitations. 09:35 Respiratory: Positive for cough, Negative for shortness of breath, wheezing. 09:35 Abdomen/GI: Positive for abdominal pain, nausea, vomiting, Negative for diarrhea, constipation, anorexia. 09:35 Back: Positive for radiated pain. 09:35 : Negative for urinary symptoms, vaginal bleeding, vaginal discharge. 09:35 Skin: Negative for cellulitis, rash. 09:35 Neuro: Positive for headache, Negative for altered mental status, dizziness, weakness. 09:35 All other systems are negative. Exam: 09:40 Constitutional: The patient appears in no acute distress, alert, awake, cp non-diaphoretic, non-toxic, well developed, well nourished. 09:40 Head/Face: Normocephalic, atraumatic. cp 09:40 Eyes: Periorbital structures: appear normal, Conjunctiva: normal, no exudate, no injection, Sclera: no appreciated abnormality, Lids and lashes: appear normal, bilaterally. 09:40 ENT: External ear(s): are unremarkable, Ear canal(s): are normal, clear, TM's: bulging, is not appreciated, bilaterally, dullness, bilaterally, erythema, is not appreciated, bilaterally, Nose: is normal, Mouth: is normal, Posterior pharynx: is normal, airway is patent, no erythema, no exudate. 09:40 Neck: ROM/movement: is normal, is supple, without pain, no range of motions limitations, no meningismus, no nuchal rigidity. 09:40 Chest/axilla: Inspection: normal, Palpation: is normal, no crepitus, no tenderness. 09:40 Cardiovascular: Rate: normal, Rhythm: regular, Edema: is not appreciated, JVD: is not appreciated. 09:40 Respiratory: the patient does not display signs of respiratory distress, Respirations: normal, no use of accessory muscles, no retractions, no splinting, no tachypnea, labored breathing, is not present, Breath sounds: are clear throughout, no decreased breath sounds, no stridor, no wheezing. 09:40 Abdomen/GI: Inspection: abdomen appears normal, Bowel sounds: active, all quadrants, Palpation: soft, in all quadrants, mild abdominal tenderness, in the right lower quadrant and left lower quadrant, rebound tenderness, is not appreciated, involuntary guarding, is not appreciated. 09:40 Back: pain, that is mild, of the low back area, ROM is normal. 09:40 Skin: no rash present. 09:40 Neuro: Orientation: to person, place \T\ time. Mentation: is normal, Cerebellar function: is grossly normal, Motor: moves all fours, strength is normal, Sensation: is normal. 12:00 ECG was reviewed by the Attending Physician. cp Vital Signs: 09:22 BP 141 / 94; Pulse 82; Resp 16; Temp 98.2(O); Pulse Ox 97% on R/A; Weight 87.09 kg; hb Height 5 ft. 2 in. (157.48 cm); Pain 7/10; 10:12 BP 123 / 77; Pulse 66; Resp 16; Pulse Ox 99% ; sv 12:05 BP 128 / 78; Pulse 70; Resp 16 S; Pulse Ox 100% on R/A; jl7 09:22 Body Mass Index 35.12 (87.09 kg, 157.48 cm) hb MDM: 09:23 Patient medically screened. cp 10:00 Differential diagnosis: appendicitis, cholecystitis, Cholelithiasis, gastritis, Peptic cp Ulcer Disease, Perf. Duodenal Ulcer, Perf. Gastric Ulcer, Pyelonephritis, Ureterolithiasis, urinary tract infection. 11:48 Data reviewed: vital signs, nurses notes, lab test result(s), radiologic studies, CT cp scan, and as a result, I will discharge patient. 11:48 Counseling: I had a detailed discussion with the patient and/or guardian regarding: the cp historical points, exam findings, and any diagnostic results supporting the discharge/admit diagnosis, lab results, radiology results, to return to the emergency department if symptoms worsen or persist or if there are any questions or concerns that arise at home. Response to treatment: the patient's symptoms have markedly improved after treatment, and as a result, I will discharge patient. Special discussion: Based on the patient's Hx, exam, and Dx evaluation, there is no indication for emergent surgery or inpatient Tx. It is understood by the patient/guardian that if the Sx's persist or worsen they need to return immediately for re-evaluation. 07/12 09:29 Order name: Basic Metabolic Panel 07/12 09:29 Order name: CBC with Diff 07/12 09:29 Order name: Creatinine for Radiology 07/12 09:29 Order name: Hepatic Function 07/12 09:29 Order name: Lipase 07/12 09:29 Order name: Strep 07/12 09:47 Order name: Influenza Screen (a \T\ B) 07/12 09:51 Order name: Urine Dipstick--Ancillary (enter results) [facility] 07/12 09:51 Order name: Urine --Ancillary (enter results) [facility] 07/12 09:53 Order name: CBC with Automated Diff; Complete Time: 10:57 EDMS 07/12 09:57 Order name: Group A Streptococcus Rapid Sc; Complete Time: 10:57 EDMS 07/12 10:57 Interpretation: Reviewed. 07/12 10:01 Order name: Creatinine (Radiology Only); Complete Time: 10:57 EDGA 07/12 10:05 Order name: Basic Metabolic Panel; Complete Time: 10:57 [facility] 07/12 10:57 Interpretation: Normal except: CL 109. 07/12 10:05 Order name: Liver (Hepatic) Function; Complete Time: 10:57 [facility] 07/12 11:46 Interpretation: Normal except: AST 13; GLOB 3.8. 07/12 09:29 Order name: IV Saline Lock; Complete Time: 10:03 07/12 09:29 Order name: Labs collected and sent; Complete Time: 10:03 07/12 09:29 Order name: Urine Dipstick-Ancillary (obtain specimen); Complete Time: 10:03 07/12 09:43 Order name: CT Abd/Pelvis - IV Contrast Only 07/12 10:05 Order name: Lipase; Complete Time: 10:57 [facility] 07/12 10:36 Order name: Influenza Screen (A ; Complete Time: 10:57 [facility] 07/12 10:54 Order name: Urine --Ancillary; Complete Time: 10:57 [facility] 07/12 10:54 Order name: Urine Dipstick-Ancillary; Complete Time: 10:57 [facility] 07/12 10:57 Interpretation: Normal except: UBLD 1+; U NIT POSITIVE; UESTR 1+. 07/12 11:31 Order name: CT; Complete Time: 11:45 [facility] 07/12 11:47 Order name: EKG; Complete Time: 11:47 07/12 09:29 Order name: Urine Test (obtain specimen); Complete Time: 10:03 07/12 11:46 Order name: PO challenge; Complete Time: 12:01 07/12 11:47 Order name: EKG - Nurse/Tech; Complete Time: 12:01 EC:00 Rate is 59 beats/min. Rhythm is regular. GA interval is normal. QRS interval is normal. cp QT interval is normal. T waves are Inverted in lead III. Interpreted by me. Reviewed by me. Administered Medications: 09:50 Drug: Pepcid 20 mg Route: IVP; Site: right antecubital; sv 10:30 Follow up: Response: No adverse reaction sv 11:33 Follow up: Response: No adverse reaction jl7 09:50 Drug: NS 0.9% 1000 ml Route: IV; Rate: 1 bolus; Site: right antecubital; sv 11:00 Follow up: Response: No adverse reaction; IV Status: Completed infusion; IV Intake: sv 1000ml 09:52 Drug: Zofran 4 mg Route: IVP; Site: right antecubital; sv 10:30 Follow up: Response: No adverse reaction sv 11:33 Follow up: Response: No adverse reaction jl7 10:00 Drug: TORadol 30 mg Route: IVP; Site: right antecubital; sv 11:00 Follow up: Response: No adverse reaction sv 11:32 Not Given (Wrong pharmacy order): Rocephin - (cefTRIAXone) 1 grams IVPB once over 30 jl7 mins; (mix in 50 mL NS) 11:33 Drug: Rocephin 1 grams Route: IV; Rate: calculated rate; Site: right antecubital; jl7 11:36 Follow up: Response: No adverse reaction; IV Status: Completed infusion jl7 Disposition: 07/13 09:05 Co-signature as Attending Physician, Augie Arguelles MD I agree with the assessment and kdr plan of care. Disposition: 07/12/19 11:49 Discharged to Home. Impression: Urinary tract infection, site not specified, Vomiting, Other chest pain. - Condition is Stable. - Discharge Instructions: Nonspecific Chest Pain, Nausea and Vomiting, Adult, Urinary Tract Infection, Adult. - Prescriptions for Ibuprofen 800 mg Oral Tablet - take 1 tablet by ORAL route every 8 hours As needed take with food; 30 tablet. Zofran 4 mg Oral Tablet - take 1 tablet by ORAL route every 12 hours As needed; 10 tablet. Bactrim DS 800- 160 mg Oral Tablet - take 1 tablet by ORAL route every 12 hours for 7 days; 14 tablet. - Medication Reconciliation Form, Thank You Letter, Antibiotic Education, Prescription Opioid Use form. - Follow up: Private Physician; When: 2 - 3 days; Reason: Worsening of condition. - Problem is new. - Symptoms have improved. Signatures: Dispatcher [employer] Isis Mehta RN RN sv Rittger, Kevin, MD MD kdr Page, Corey, PA PA cp Baxter, Heather, RN RN Jaquan Ferreira RN RN jl7 Corrections: (The following items were deleted from the chart) 07/12 11:51 11:49 07/12/2019 11:49 Discharged to Home. Impression: Urinary tract infection, site cp not specified; Vomiting. Condition is Stable. Forms are Medication Reconciliation Form, Thank You Letter, Antibiotic Education, Prescription Opioid Use. Follow up: Private Physician; When: 2 - 3 days; Reason: Worsening of condition. Problem is new. Symptoms have improved. cp 12:06 11:51 07/12/2019 11:49 Discharged to Home. Impression: Urinary tract infection, site jl7 not specified; Vomiting; Other chest pain. Condition is Stable. Discharge Instructions: Nonspecific Chest Pain, Nausea and Vomiting, Adult, Urinary Tract Infection, Adult. Prescriptions for Ibuprofen 800 mg Oral Tablet - take 1 tablet by ORAL route every 8 hours As needed take with food; 30 tablet, Zofran 4 mg Oral Tablet - take 1 tablet by ORAL route every 12 hours As needed; 10 tablet, Bactrim DS 800-160 mg Oral Tablet - take 1 tablet by ORAL route every 12 hours for 7 days; 14 tablet. and Forms are Medication Reconciliation Form, Thank You Letter, Antibiotic Education, Prescription Opioid Use. Follow up: Private Physician; When: 2 - 3 days; Reason: Worsening of condition. Problem is new. Symptoms have improved. cp
[2019-07-12 12:16] VITALS: TEMP 98.2
[2019-07-12 12:19] VITALS: BP 128/78; O2SAT 100
--- NOTE | 2019-07-13 11:35 | EKG ---
Test Date: 2019-07-12 Test Time: 11:54:47 [employer]: SHERRY MEASUREMENT RESULTS: Intervals: Rate: 59 NH: 150 QRSD: 96 QT: 452 QTc: 447 [place]: P: 53 NH: 150 QRS: 28 T: 25 INTERPRETIVE STATEMENTS: Sinus bradycardia with sinus arrhythmia Otherwise normal ECG No previous ECG available for comparison Electronically Signed On 07-13-19 11:31:27 CDT by Ryan Burnette
== END 2019-07-12 12:06 | disposition home or self-care (01) ==
LOC: ER 09:07
DX: N39.0 Urinary tract infection, site not specified (principal); R11.10 Vomiting, unspecified
CPT/HCPCS: 96361; 93005; 87070; 85025; 80048; 36415; 81025; 80076; 87081; 81003; 83690; 87804 ×2; 74177; 96375; 96374; 99284; Q9967; J0696; J7030; J2405

== ENCOUNTER 2022-08-17 14:19 | Emergency (ER) | payer BC, SELFPAY ==
--- OUTSIDE RECORDS SUMMARY | 2022-08-17 14:29 | XMS REPORT | Continuity of Care Document ---
:1995 Author Organization [facility] t Address [address] [place] [address] Care Team Providers Name Role Phone Annabel Andersen Attending Clinician Unavailable ROYA Attending Clinician Unavailable Nini Colmenares Attending Clinician [phone] Magdalene Hogan Attending Clinician [phone] Lyndon Mitchell MD Attending Clinician Heide Mann Attending Clinician Unknown, Attending Attending Clinician Unavailable Annabel Andersen Admitting Clinician Unavailable ROYA Admitting Clinician Unavailable Payers Payer Name Policy Type Policy Number Effective Date Expiration Date S rommel [facility] [id number] 2019 PPO 00:00:00 BC[facility] OF [facility] [id number] 2014 OF [facility] 00:00:00 [facility] [id number] (PPO) Problems Condition Condition Condition Status Onset Resolution Last Treating Co mments Source Name Details Category Date Date Treatment Clinician Date Mixed Mixed Problem Active [place] anxiety Anxiety -15 Communi and and 00:00: ty depressive Depressive 00 Ho spita disorder Disorder l Clinics Acute Acute Problem Active [place] maxillary Maxillary 1-15 Comm uni sinusitis Sinusitis 00:00: [facility] Abnormal Abnormal Problem Active [place] blood Blood 1-15 Communi pressure Pressure 00:00: [facility] Clinics Primiparou Primiparou Disease Active 2018-10 U nivers s in first s in first 0-16 it [place] of [place] [address] [place] [address] Absence of Absence of Disease Active 2018-10 U nivers menstruati menstruati 0-16 it y of on on 00:00: [address] BMI BMI Disease Active 2018-10 Univers 40.0-44.9, 40.0-44.9, 0-16 it y of adult adult 00:00: [address] Supervisio Supervisio Disease Active 2018-10 U nivers n of other n of other 0-16 it y of high risk high risk 00:[place] pregnancie pregnancie 00 Me dical s, first s, first Branch trimester trimester Pyelonephr Pyelonephr Disease Active 2017-10 U nivers itis itis 2-18 ity of 00:00: [address] Allergies, Adverse Reactions, Alerts Allergy Allergy Status Severity Reaction(s) Onset Inactive Treating Comm ents Source Name Type Date Date Clinician No Known DA Active U 2019-0 [facility] Allergie 3-16 Clear s 00:00: [place] 00 [facility] No Known DA Active U 2020-0 [facility] Allergie 3-16 Clear s 00:00: [place] 00 [facility] NO KNOWN Drug Active Univers ALLERGIE Class ity of S [facility] Social History Social Habit Start Date Stop Date Quantity Comments Source ASSERTION 2019-07-21 University of 00:00:00 [facility] Exposure to Not sure [place] of SARS-CoV-2 [facility] (event) [place] Sex Assigned At Universit y of [facility] Tobacco use and 2020-07-05 2020-07-05 Never used Universit y of exposure 00:00:00 00:00:00 [facility] Alcohol intake 2020-07-05 2020-07-05 Current drinker Unive rsity of 00:00:00 00:00:00 of alcohol [facility] (finding) [place] Alcohol Comment 2019-08-11 2019-08-11 socially-last Univer sity of 00:00:00 00:00:00 saturday [facility] History of 2019-08-11 Smoker University of tobacco use 00:00:00 [facility] Smoking Status Start Date Stop Date Source Former smoker 2020-07-05 00:00:00 2020-07-05 [facility]00 [facility] Medications Ordered Filled Start Stop Current Ordering Indication Dosage Frequency Signature Comments Components Source Medication Medication Date Date Medication? Clinician (SIG) Name Name Yes Unive rs vit/iron 1-15 ity of fum/folic 02:07: [place] [address] Medical ( 1 Branch + 1 ORAL) foLIC acid Yes 1mg Take 1 mg Un tejinder 1 mg tablet 1-15 by mouth ity of 02:07: daily. [address] calcium Yes Take by Univers carbonate 1-15 mouth. ity of (CALCIUM 02:07: [place] 500 ORAL) [address] [place] [address] Yes Unive rs vit/iron 1-15 ity of fum/folic 02:07: [place] [address] Medical ( 1 Branch + 1 ORAL) foLIC acid Yes 1mg Take 1 mg Un tejinder 1 mg tablet 1-15 by mouth ity of 02:07: daily. [address] calcium Yes Take by Univers carbonate 1-15 mouth. ity of (CALCIUM 02:07: [place] 500 ORAL) [address] [place] [address] azithromyci Yes [id number] 250mg Take 1 Univers n 250 mg 1-14 tablet by ity of tablet 00:00: mouth [place] [address] SEE-INSTRU Medical CTIONS. Branch Take 500 mg day 1, then 250 mg days 2 to 5. azithromyci Yes [id number] 250mg Take 1 Univers n 250 mg 1-14 tablet by ity of tablet 00:00: mouth [place] [address] SEE-INSTRU Medical CTIONS. Branch Take 500 mg day 1, then 250 mg days 2 to 5. phenazopyri 2017-10- No 200mg Take 1 Un tejinder dine 200 mg 2-15 -14 tablet by it y of tablet 00:00: 00:00 mouth 3 [place] 00 :00 (three) Medical times [place] daily. ondansetron 2017-10- No 4mg Take 1 Uni vers (ZOFRAN 2-15 - tablet by ity of ODT) 4 mg 00:00: 00:00 mouth [place] disintegrat 00 :00 every 8 Medic al ing tablet (eight) Branch hours as needed for Nausea and Vomiting (N/V). albuterol albuterol No albuterol [place] sulfate 2 sulfate 2 sulfate 2 Communi mg tablet mg tablet mg tablet ty TAKE 2 TAKE 2 TAKE 2 Hospita TABLETS BY TABLETS BY TABLETS BY l MOUTH EVERY MOUTH EVERY MOUTH Clinics 6 HOURS 6 HOURS EVERY 6 NEEDED FOR NEEDED FOR HOURS CONTRACTION CONTRACTION NEEDED FOR S S CONTRACTIO NS fluoxetine fluoxetine No 1 Q1D fluoxetine [place] 10 mg 10 mg 10 mg Communi tablet Take tablet Take tablet ty 1 tablet 1 tablet Take 1 Hospi ta every day every day tablet l by oral by oral every day Clin ics route as route as by oral directed directed route as for 30 for 30 directed days. days. for 30 days. hydrocortis hydrocortis No hydrocorti [place] one 2.5 % one 2.5 % sone 2.5 % Communi topical topical topical ty cream APPLY cream APPLY cream Hospita 1 TOPICAL 1 TOPICAL APPLY 1 l APPLCATION APPLCATION TOPICAL Clinics 3 TIMES A 3 TIMES A APPLCATION DAY DAY 3 TIMES A NEEDED FOR NEEDED FOR DAY ITCHING ITCHING NEEDED FOR ITCHING metoclopram metoclopram No metoclopra [place] lashay 10 mg lashay 10 mg mide 10 mg Communi tablet TAKE tablet TAKE tablet ty 1 TABLET BY 1 TABLET BY TAKE 1 Hospita MOUTH MOUTH TABLET BY l BEFORE BEFORE MOUTH Clinics MEALS MEALS BEFORE (TWICE A (TWICE A MEALS DAY) DAY) (TWICE A DAY) Nexplanon Nexplanon No Nexplanon [place] 68 mg 68 mg 68 mg Communi subdermal subdermal subdermal ty implant implant implant Hospit a l Clinics ondansetron ondansetron No ondansetro [place] 4 mg 4 mg n 4 mg Communi disintegrat disintegrat disintegra ty ing tablet ing tablet ting Hos edi TAKE 1 TAKE 1 tablet l TABLET BY TABLET BY TAKE 1 Cli nics MOUTH UNDER MOUTH UNDER TABLET BY THE TONGUE THE TONGUE MOUTH EVERY 4 6 EVERY 4 6 UNDER THE HOURS HOURS TONGUE NEEDED NEEDED EVERY 4 6 HOURS NEEDED Zithromax Zithromax No Zithromax [place] Z-Eddi 250 Z-Eddi 250 Z-Eddi 250 Communi mg tablet mg tablet mg tablet ty TAKE 2 TAKE 2 TAKE 2 Hospita TABLETS TABLETS TABLETS l (500 MG) BY (500 MG) BY (500 MG) Clinics ORAL ROUTE ORAL ROUTE BY ORAL ONCE DAILY ONCE DAILY ROUTE ONCE FOR 1 DAY FOR 1 DAY DAILY FOR THEN 1 THEN 1 1 DAY THEN TABLET (250 TABLET (250 1 TABLET MG) BY ORAL MG) BY ORAL (250 MG) ROUTE ONCE ROUTE ONCE BY ORAL DAILY FOR 4 DAILY FOR 4 ROUTE ONCE DAYS DAYS DAILY FOR 4 DAYS fluoxetine fluoxetine No fluoxetine [place] 10 mg 10 mg 10 mg Communi tablet TAKE tablet TAKE tablet ty 1 TABLET 1 TABLET TAKE 1 Hospi ta EVERY DAY EVERY DAY TABLET l BY ORAL BY ORAL EVERY DAY Clin ics ROUTE ROUTE BY ORAL DIRECTED DIRECTED ROUTE FOR 30 FOR 30 DIRECTED DAYS. DAYS. FOR 30 DAYS. Nexplanon Nexplanon No Nexplanon [place] 68 mg 68 mg 68 mg Communi subdermal subdermal subdermal ty implant implant implant Hospit a l Clinics Immunizations Ordered Immunization Filled Immunization Date Status Commen ts Source Name Name Influenza, Influenza, 2019-09-29 Completed [place] Communi ty injectable, MDCK, injectable, MDCK, 16:25:00 Hospital Clinics preservative free, preservative free, quadrivalent quadrivalent Influenza, Influenza, 2019-09-29 Completed [place] Communi ty injectable, MDCK, injectable, MDCK, 16:25:[address] [facility] preservative free, preservative free, quadrivalent quadrivalent Vital Signs Vital Name Observation Time Observation Value Comments Source BP Diastolic 2021-01-11 00:00:00 73 mm[Hg] [facility] [place] s Height 2021-01-11 00:00:00 63 [in_i] [facility] [place] s BMI (Body Mass 2021-01-11 00:00:00 39.9 kg/m2 [facility]) [facility] s BP Systolic 2021-01-11 00:00:00 127 mm[Hg] [facility] [place] s Body Weight 2021-01-11 00:00:00 3600 [oz_av] [facility] [place] s BP Diastolic 2020-11-11 00:00:00 86 mm[Hg] [facility] [place] s Height 2020-11-11 00:00:00 63 [in_i] [facility] [place] s BMI (Body Mass 2020-11-11 00:00:00 39.3 kg/m2 [facility] s BP Systolic 2020-11-11 00:00:00 136 mm[Hg] [facility] [place] s Body Weight 2020-11-11 00:00:00 3552 [oz_av] [facility] [place] s Systolic blood 2020-11-11 04:48:00 154 mm[Hg] Univer sity of pressure [facility] Diastolic blood 2020-11-11 04:48:00 99 mm[Hg] Unive rsity of pressure [facility] Heart rate 2020-11-11 04:48:00 78 /min Universi ty of [facility] Body temperature 2020-11-11 04:48:00 36.89 [place] Univ ersity of [facility] Branch Respiratory rate 2020-11-11 04:48:00 16 /min Univ ersity of [facility] Body height 2020-11-11 04:48:00 160 cm Universi ty of [place] [facility] Oxygen saturation in 2020-11-11 04:48:00 99 /min University of Arterial blood by [place] [employer] [place] Pulse oximetry Branch Systolic blood 2019-11-11 02:08:00 142 mm[Hg] Univer sity of pressure [facility] Diastolic blood 2019-11-11 02:08:00 92 mm[Hg] Unive rsity of pressure [facility] Heart rate 2019-11-11 02:06:00 99 /min Universi ty of [place] [facility] [place] Body temperature 2019-11-11 02:06:00 36.28 [place] Univ ersity of [place] [facility] Respiratory rate 2019-11-11 02:06:00 22 /min Univ ersity of [place] [facility] Body height 2019-11-11 02:06:00 160 cm Universi ty [facility] [place] [facility] Body weight 2019-11-11 02:06:00 111.131 kg Universi ty [facility] [place] [facility] BMI 2019-11-11 02:06:00 43.40 kg/m2 Universi ty [facility] [place] [facility] Oxygen saturation in 2019-11-11 02:06:00 95 /min University of Arterial blood by [place] Medi [place] Pulse oximetry Branch Procedures Procedure Date / Time Performed Performing Clinician Yesi minor [id number] 2020-02-22 00:00:00 RAMCA.01 [facility] Repair of Meniscus 2012-04-12 00:00:00 [facility] Delivery [facility] Plan of Care Planned Activity Planned Date Details Comments Source Instructions [facility] Encounters Start End Encounter Admission Attending Care Care Encounter Source Date/Time Date/Time Type Type Clinicians Facility Department ID 2021 Emergency [facility] [id number] Univers 17:27:31 ity of [facility] 2020-03-22 Inpatient Ganesh, [facility] [id number] [facility] 12:30:00 Annabel 92 [facility] [place] 2020-02-20 Inpatient Ganesh, [facility] ДМИТРИЙ [id number] [facility] 05:34:00 Annabel 00 [facility] [place] 2020-02-04 Inpatient ANA Andersen, [facility] OBANTE [id number] [facility] 15:25:00 Annabel 41 [facility] [place] 2020-02-01 Inpatient Ganesh, [facility] ДМИТРИЙ [id number] [facility] 13:55:00 Annabel 95 [facility] [place] 2020-01-31 Inpatient Ganesh, [facility] ДМИТРИЙ [id number] [facility] 16:47:00 Annabel 79 [facility] [place] 2020-01-11 Inpatient Ganesh, [facility] ДМИТРИЙ [id number] [facility] 08:44:00 Annabel 56 [facility] [place] 2021-01-12 2021-01-12 Outpatient [facility] 688 [place] 10:20:00 10:20:00 _L 318 Commun [facility] [address] [facility] 2021-01-11 2021-01-11 Outpatient [facility] [id number] [place] 10:32:00 10:32:00 _L 317 Commun i [address] 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 2021-01-11 2021-01-11 Outpatient Dedra [facility] [id number] 00:00:00 00:00:00 Nini [id number] 2020-12-22 2020-12-22 Outpatient [place] [id number] [place] 01:01:00 01:01:00 _L 316 Commun i ty Hospita l Clinics 2020-12-22 2020-12-22 Outpatient [facility] 68 [place] 01:01:00 01:01:00 _L 225 Commun i ty Hospita l Clinics 2020-11-17 2020-11-17 Outpatient [place] [id number] [place] 03:33:00 03:33:00 _L 121 Commun i ty Hospita l Clinics 2020-11-14 2020-11-14 Outpatient [place] [address] [place] 09:23:00 09:23:00 _L 118 Commun i ty Hospita l Clinics 2020-11-11 2020-11-11 Outpatient [place] [id number] [place] 11:43:00 11:43:00 _L [address] Commun [address] 2020-11-11 2020-11-11 Outpatient [facility] 06d [id number] 00:00:00 00:00:00 , Magdalene [id number] Lauren [id number] 2020-11-11 2020-11-11 Magdalene Aguilar [facility] [place] - [place] 202 [id number] [place] 00:00:00 00:00:00 STEFANO FelderC: [address], [place] [address] , Ph. 2020-11-10 2020-11-11 Emergency [facility] [id number] Univers 22:53:00 00:00:00 Lyndon Mckeon [id number] i ty of [place] [id number] [facility] [id number] [facility] [place] 084 Branch 2020-02-04 2020-02-04 Outpatient PETER Andersen [id number] [facility] 16:22:00 16:22:00 Annabel Reyna [facility] 2019-11-10 2019-11-10 Urgent Heide Nieves [facility] [id number] Univers 19:59:56 20:23:50 Care Unknown, Attending Health [id number] ity of [facility] [id number] [facility] [id number] Vt dical es 370 [facility] Results Test Description Test Time Test Comments Results Result Comments Source [facility] 2020-02-25 TRIMESTER 14:04:00 RUN DATE: 02/25/20 [facility] PAGE 1 RUN TIME: 1711 Specimen Inquiry RUN USER: INTERFACE ALEXANDER IENT: DMITRIY CARDENAS LOC: MariJAYCEE U #: [id number] AGE/SX: 24/F ROOM: [facility] RE02/20/20REG DR: Annabel Andersen MD : 95 BED: A DIS: 02/23/20 STATUS: DIS IN TLOC: SPEC #: [id number] RECD: 02/20/20 STATUS: TRICIA AVERY #: [id number] SHASTA: 02/20/20- SUBM DR: Annabel Andersen MD ENTERED: 02/23/20 SP TYPE: PLACIII OTHR DR: Vaughn Moore Jr, MD ORDERED: LEVEL V SURGICA CODES: [id number] - PLACENTA, NOS COPIES TO: Vaughn Moore Jr, MD [address] [place] [address] Annabel Andersen MD [address] [place] [address] PROCEDURES: LEVEL V SURGICA (Incomplete) TISSUES: PLACENTA, NOS - PLACENTA - TWINS CLINICAL HISTORY 24 year old, 33.4 weeks, L2, section, twins (kr) FINAL DIAGNOSIS Placenta, twin gestation: - dichorionic diamniotic, separate - combined placental weight: actual 775 gms/expected combined weight 687 gms - placenta #1 - third trimester villous architecture - no inflammation of umbilical cord or membranes - umbilical cord: insertion 3 cm from margin, 3-vessel, 34 cm length - actual placental weight: 370 gms - placenta #2 - third trimester villous architecture - patchy villous edema - no inflammation of umbilical cord or membranes - umbilical cord: velamentous insertion, 3-vessel, 32 cm length - actual placental weight: 405 gms CPT code(s): 39715 x2 cds/wpd CONTINUED ON NEXT PAGE RUN DATE: 02/25/20 [facility] PAGE 2 RUN TIME: 1711 Specimen Inquiry RUN USER: INTERFACE TAMEKA Way #: [id number] PATIENT: DMITRIY CARDENAS #[id number] (Continued)-------- -------- GROSS DESCRIPTION The specimen was received in a container, labeled with the patient's name, unit number and designated "placenta, twins" and is the product of a twin separate disc placentas with attached membranes and umbilical cords. There are no dividing membranes. The following attributes are observed: PLACENTA #1: Cord insertion: 3 cm from margin Cord length: 34 cm Number of vessels: 3 Cord color: He Other cord findings: Slightly edematous surface findings: Steel blue, wrinkled, glistening with focal subchorionic fibrin deposition Vasculature: Displays unremarkable blood vasculature Membranes rupture site: Marginal Membrane color: He Other membrane findings: Thickened The trimmed placental weight: 370 gm Disk measurement: 16.0 x 14.5 x 3.0 cm in greatest dimension Accessory lobes: None Maternal surface: Lobulated and intact Parenchyma: Red, beefy, and spongy with peripheral fibrosis Parenchyma lesions: None Cassettes: A1 through A4 PLACENTA #2: Cord insertion: Velamentous Cord length: 32 cm Number of vessels: 3 Cord color: He Other cord findings: Edematous surface findings: Steel blue, wrinkled, glistening with focal subchorionic fibrin deposition Vasculature: Displays unremarkable blood vasculature Membranes rupture site: 1 cm to margin Membrane color: He Other membrane findings: Thickened The trimmed placental weight: 405 gm Disk measurement: 16.0 x 15.0 x 3.0 cm in greatest dimension Accessory lobes: None Maternal surface: Lobulated and intact Parenchyma: Red, beefy, and spongy with peripheral fibrosis Parenchyma lesions: None Cassettes: A5 through A8 rosy/verónica 02/24/20 CONTINUED ON NEXT PAGE RUN DATE: 02/25/20 [facility] PAGE 3 RUN TIME: 1711 Specimen Inquiry RUN USER: INTERFACE TAMEKA Way #: [id number] PATIENT: RONALDDMITRIY #[id number] (Continued)-------- -------- Signed Reilly Galelgos Octaviano 02/25/20 1404 END OF REPORT AG HEPATITIS B SURFACE 2020-02-22 19:27:00 Test Item Value Reference Range Interpretation Comme nts AG HEPATITIS B SURFACE (test code = HBSAG) NONREACTIVE NONREACTIVE Comments to Journeyman Powerhouse Operator: USE BLOOD IN LAB, DO NOT NEED CBC FROM THISAB HEPATITIS C [id number] 19:27:00 Test Item Value Reference Range Interpretation Comments AB HEPATITIS C (test code = NONREACTIVE NONREACTIVE HCVAB) SIGNAL TO CUTOFF (test code = 0.14 <0.80 N CUTOFF) Comments to Journeyman Powerhouse Operator: USE BLOOD IN LAB, DO NOT NEED CBC FROM THISAB [id number] 19:27:00 Test Item Value Reference Range Interpretation Comments AB TREPONEMA (test code = TREPAB) NONREACTIVE NONREACTIVE Comments to Journeyman Powerhouse Operator: USE BLOOD IN LAB, DO NOT NEED CBC FROM THISAB HIV 1 2 2020-02-22 19:27:00 Test Item Value Reference Range Interpretation Comments AB HIV 1 2 (test NONREACTIVE NONREACTIVE [id number] 4th Gen HIV Ag/Ab Combo Screen Comments to Journeyman Powerhouse Operator: USE BLOOD IN LAB, DO NOT NEED CBC FROM THISHGB HCT 2020-02-21 05:25:00 Test Item Value Reference Range Interpretation Comments HEMOGLOBIN (test code = 9.1 g/dL 10.7-13.9 L Resu lts verified by HGB) repeat analysis HEMATOCRIT (test code = 28.5 % 32.1-42.1 L Resu lts verified by HCT) repeat analysis AG HEPATITIS B [id number] 02:58:00 Test Item Value Reference Range Interpretation Comments AG HEPATITIS B SURFACE (test code NONREACTIVE NONREACTIVE = HBSAG) Comments to Journeyman Powerhouse Operator: USE BLOOD IN LAB, DO NOT NEED CBC FROM THISAB HEPATITIS C [id number] 02:58:00 Test Item Value Reference Range Interpretation Comments AB HEPATITIS C (test code = NONREACTIVE NONREACTIVE HCVAB) SIGNAL TO CUTOFF (test code = 0.14 <0.80 N CUTOFF) Comments to Journeyman Powerhouse Operator: USE BLOOD IN LAB, DO NOT NEED CBC FROM THISAB [id number] 02:58:00 Test Item Value Reference Range Interpretation Comments AB TREPONEMA (test code = TREPAB) NONREACTIVE NONREACTIVE Comments to Journeyman Powerhouse Operator: USE BLOOD IN LAB, DO NOT NEED CBC FROM THISAG HEPATITIS B [id number] 02:08:00 Test Item Value Reference Range Interpretation Comments AG HEPATITIS B SURFACE (test code NONREACTIVE NONREACTIVE = HBSAG) Comments to Journeyman Powerhouse Operator: USE BLOOD IN LAB, DO NOT NEED CBC FROM THISAB HEPATITIS C [id number] 02:08:00 Test Item Value Reference Range Interpretation Comments AB HEPATITIS C (test code = HCVAB) NONREACTIVE SIGNAL TO CUTOFF (test code = CUTOFF) <0.80 Comments to Journeyman Powerhouse Operator: USE BLOOD IN LAB, DO NOT NEED CBC FROM THISAB [id number] 02:08:00 Test Item Value Reference Range Interpretation Comments AB TREPONEMA (test code = TREPAB) NONREACTIVE NONREACTIVE Comments to Journeyman Powerhouse Operator: USE BLOOD IN LAB, DO NOT NEED CBC FROM THIS PROTHROMBIN [id number] 16:42:00 Test Item Value Reference Range Interpretation Comments PROTHROMBIN TIME PATIENT (test code 11.6 secs 10.4-12.4 N = PTP) THROMBOPLASTIN TIME [id number] 16:42:00 Test Item Value Reference Range Interpretation Comments THROMBOPLASTIN TIME PARTIAL (test 33.6 secs 22-38 N code = PTT) PIH [id number] 16:36:00 Test Item Value Reference Range Interpretation Comments CREATININE (test code = CREAT) 0.6 mg/dL 0.5-1.0 N SGOT/AST (test code = AST) 14 units/L 15-37 L SGPT/ALT (test code = ALT) 20 units/L 12-78 N LACTIC DEHYDROGENASE(LDH) (test 172 units/L 81-234 N code = LDH) : *CHEMISTRY 7 [id number] 16:32:00 Test Item Value Reference Range Interpretation Comments SODIUM (test code = NA) 137 mEq/L 135-145 N POTASSIUM (test code = K) 4.0 mEq/L 3.5-5.0 N CHLORIDE (test code = CL) 102 mEq/L 100-115 N CARBON DIOXIDE (test code = CO2) 21 mEq/L 22-31 L ANION GAP (test code = GAP) 18.40 10-20 N GLUCOSE (test code = GLU) 88 mg/dL 65-110 N BLOOD [place] NITROGEN (test code = 8 mg/dL 7-18 N BUN) GLOMERULAR FILTRATION RATE (test 123 ml/min >60 N code = GFR) CREATININE (test code = CREAT) 0.6 mg/dL 0.5-1.0 N CALCIUM (test code = CA) 8.5 mg/dL 8.4-10.2 N [id number] 16:32:00 Test Item Value Reference Range Interpretation Comments AMYLASE (test code = EVELYN) 38 units/L 30-110 N [id number] 16:32:00 Test Item Value Reference Range Interpretation Comments LIPASE (test code = LIP) 67 units/L 73-393 L CBC W/AUTO [id number] 16:28:00 Test Item Value Reference Range Interpretation Comments WHITE BLOOD CELL (test code = WBC) 18.8 K/mm3 6.6-12.1 H RED BLOOD CELL (test code = RBC) 4.37 M/mm3 3.45-5.01 N HEMOGLOBIN (test code = HGB) 11.4 g/dL 10.7-13.9 N HEMATOCRIT (test code = HCT) 35.7 % 32.1-42.1 N MEAN CELL VOLUME (test code = MCV) 82 fL 84.1-94.8 L MEAN CELL HGB (test code = MCH) 26.1 pg 27-35 L MEAN CELL HGB CONCETRATION (test 31.9 gm/dL 32.2-34.1 L code = MCHC) RED CELL DISTRIBUTION WIDTH (test 14.1 % 12.4-16.5 N code = RDW) PLATELET COUNT (test code = PLT) 270 K/mm3 133-385 N MEAN PLATELET VOLUME (test code = 10.2 fl 9.1-12.7 N MPV) NEUTROPHIL % (test code = NT%) 85.0 % 56.5-79.4 H LYMPHOCYTE % (test code = LY%) 8.1 % 14.3-34.3 L MONOCYTE % (test code = MO%) 6.0 % 5.1-10.4 N EOSINOPHIL % (test code = EO%) 0.1 % 0.1-3.0 N BASOPHIL % (test code = BA%) 0.2 % 0.1-1.0 N NEUTROPHIL # (test code = NT#) 16.0 K/mm3 LYMPHOCYTE # (test code = LY#) 1.5 K/mm3 MONOCYTE # (test code = MO#) 1.1 K/mm3 EOSINOPHIL # (test code = EO#) 0.01 K/mm3 BASOPHIL # (test code = BA#) 0.0 K/mm3 RBC MORPHOLOGY REQUIRED (test code NORMAL NORMAL = RBCM) PLATELET MORPHOLOGY REQUIRED (test NORMAL NORMAL code = PLTMR) THYROID STIMULATING [id number] 13:33:00 Test Item Value Reference Range Interpretation Comments THYROID STIMULATING 2.94 0.36-3.74 N Test Per formed in HORMONE (test code = MicroIn ternational Units/mL TSH) Comments to Journeyman Powerhouse Operator: blood already in labCoronavirus 2019 nCoV Bedside 2020-02-20 11:55:00 Test Item Value Reference Range Interpretation Comments Coronavirus 2019 nCoV Negative Negative RESUL TS CALLED TO Bedside (test code = Jinny (RN)READ BACK & [id number]) CONFIRMED? yes BY [email or web address] 01/27 03/16 7126 This result godoy s not rule out co-inf ections with otherpatho gens. * False negative results may occur if a specimen isimproperly co llected, transported or handled. False negativer esults may also occur if amplification i nhibitors arepresent in t he specimen or if inadequate leve ls of virusesare pres ent in the specimen. * As with any molecular t est, if the virus mutat es in thetarget regio n, COVID-19 may no t be detected or may bedetected less predictably.WILLIE T PERFORMED UNDER AN EMERGENCY USE AUTHORIZATION F [facility] ABUSE [id number] 08:56:00 Test Item Value Reference Range Interpretation Comments UR COCAINE (test code = NEGATIVE NEGATIVE DETE CTION CUT OFF: COCAU) 150 ng/mL UR CANNABINOIDS (test NEGATIVE NEGATIVE DETECT ION CUT OFF: code = CANU) 50 ng/mL UR AMPHETAMINE (test code NEGATIVE NEGATIVE DE TECTION CUT OFF: = AMPHU) 500 ng/mL UR BARBITURATE QUAL (test NEGATIVE NEGATIVE DE TECTION CUT OFF: code = BARBQLU) 200 ng/mL UR BENZODIAZEPINE (test NEGATIVE NEGATIVE DETE CTION CUT OFF: code = BENZU) 150 ng/mL UR OPIATES QUAL (test NEGATIVE NEGATIVE DETECT ION CUT OFF: code = OPIAQLU) 100 ng/mL UR PHENCYCLIDINE (PCP) NEGATIVE NEGATIVE DETEC TION CUT OFF: (test code = PHENCU) 25 ng/m L - US FET BIO PH IL W/O NST [id number] 08:19:00 Patient Name: DMITRIY CARDENAS Unit No: [id number] EXAMS: CPT CODE: [id number] US FET BIO PH IL W/O NST ADL [address] [facility] [address] [place] [address] OBSTETRICAL MULTI-FETUS ULTRASOUND REPORT FETUS A Pat. Name: DMITRIY CARDENAS Pat. No: [id number] Study Date: 02/20/2020 7:36am , Age: 10 1995, 24 Pregnancies: 1 LMP: 07/02/2019 GA by LMP: 33w2d GA by 1st: 33w2d GA Selected: 32w4d (From Known E) JOSEF: 04/12/2020 Referring MD: Annabel Andersen Certification Officer: Brii Hobson RDMS CPT4: USBPPWNSAD Hist/Ind: LEAKING FLUID SCAN 4 Cervical Length: 2.2 cm Heart Rate: 143 bpm Amniotic Fluid Index: 05.4cm (Deepest Pocket) Biophysical Profile:06/04 Breathin Tone: 2 Movement: 2 AFV: 2 CLINICAL SUMMARY Type of Gestation: DIAMNIOTIC,DICHORIONIC TWIN A Intrauterine in BREECH ,HEAD ON MATERNAL LEFT motion and organs seen: somatic activity observed body and limb movements seen Regular cardiac rhythm observed presentation. Placental location: Anterior Placental maturity : Grade 2 There is no evidence of placenta previa. Amniotic fluid volume is normal. Thank you for allowing us to participate in the care of this patient. Crow Leigh M.D. Electronic Signature 02/20/2020 08:19am FETUS B Pat. Name: DMITRIY CARDENAS Pat. No: [id number] Study Date: 02/20/2020 7:36am , Age: 10 1995, 24 Pregnancies: 1 LMP: 07/02/2019 GA by LMP: 33w2d [facility] NAME: DMITRIY CARDENAS Radiology Department PHYS: Annabel Davison MD [address] : 1995 AGE: 24 SEX: F [place], [place] [address] LOC: Artis4 A PHONE #: [phone] EXAM DATE: 02/20/2020 STATUS: ADM IN FAX #: [phone] RAD NO: [id number] Page 1 Signed Report(CONTINUED) Patient Name: DMITRIY CARDENAS Unit No: [id number] EXAMS: CPT CODE: [id number] US FET BIO PH IL W/O NST ADL [address]1969 (Continued) GA by 1st: 33w2d GA Selected: 32w4d (From Known E) JOSEF: 04/12/2020Referring MD: CME DIANA Certification Officer: Brii Hobson RDMS CPT4: USBPPWONST Hist/Ind: LEAKING FLUID SCAN 4 Cervical Length: 2.2 cm Heart Rate: 166 bpm Amniotic Fluid Index: 07.1cm (Deepest Pocket) Biophysical Profile: 8/8Breathin Tone: 2 Movement: 2 AFV: 2 CLINICAL SUMMARY Type of Gestation: DIAMNIOTIC,DICHORIONIC TWIN B Intrauterine in TRANSVERSE ,HEAD ON MATERNAL RIGHT motion and organs seen: somatic activity observed body and limb movements seen Regular cardiac rhythm observed presentation. Placental location: POSTERIOR Placental maturity : Grade 2 There is no evidence of placenta previa. Amniotic fluid volume is normal. PREVIOUSLY NOTED MARGINAL CORD INSERTION FOR TWIN B NOT IMAGED ON PRESENT EXAM Thank you for allowing us to participate in the care of this patient. Crow Leigh M.D. Electronic Signature 02/20/2020 08:19am at 0819 Reported and signed by: Nasreen Leigh MD CC: Annabel Andersen MD Technologist: Brii Hobson Probe: Trnscrbd D/ (0819) SisiCER Orig Print D/T: S: 02/22/2020 (0858) [facility] NAME: DMITRIY CARDENAS Radiology Department PHYS: Annabel Davison MD [address] : 1995 AGE: 24 SEX: F [place] [address] LOC: F.2214 A PHONE #: [phone] EXAM DATE: 02/20/2020 STATUS: ADM IN FAX #: [phone] RAD NO: [id number] Page 2 Signed Report Patient Name: DMITRIY CARDENAS Unit No: [id number] EXAMS: CPT CODE: [id number] US FET BIO PH IL W/O NST ADL [address]1695 (Continued) [facility] NAME: GERRI CARDENASGAYLE Radiology Department PHYS: Annabel Davison MD [address] : 1995 AGE: 24 SEX: F [place] [address] LOC: F.2214 A PHONE #: [phone] EXAM DATE: 02/20/2020 STATUS: ADM IN FAX #:[phone] RAD NO: [id number] Page 3 Signed Report- US FET BIO PH IL W/O [id number] 08:19:00 Patient Name: DMITRIY CARDENAS Unit No: [id number] EXAMS: CPT CODE: [id number] US FET BIO PH IL W/O NST [address] [address] OBSTETRICAL MULTI-FETUS ULTRASOUNDREPORT FETUS A Pat. Name: DMITRIY CARDENAS Pat. No: [id number] Study Date: 02/20/2020 7:36am , Age: 10 1995, 24 Pregnancies: Gravida1 LMP: 07/02/2019 GA by LMP: 33w2d GA by 1st: 33w2d GA Selected: 32w4d (From Known E) JOSEF: 04/12/2020 Referring MD: CEM DIANA Certification Officer: Brii Hobson RDMS CPT4: USBPPWONST Hist/Ind: LEAKING FLUID SCAN 4 Cervical Length: 2.2 cm Heart Rate: 143 bpm Amniotic Fluid Index: 05.4cm (Deepest Pocket) Biophysical Profile: 06/04 Breathin Tone: 2 Movement: 2 AFV: 2 CLINICAL SUMMARY Type of Gestation: DIAMNIOTIC,DICHORIONIC TWIN A Intrauterine in BREECH ,HEAD ON MATERNAL LEFT motion and organs seen: somatic activity observed body and limb movements seen Regular cardiac rhythm observed presentation. Placental location: Anterior Placental maturity : Grade 2 There is no evidence of placenta previa. Amniotic fluid volume is normal. Thank you for allowing us to participate in the care of this patient. Crow Leigh M.D. Electronic Signature 02/20/2020 08:19am FETUS B Pat. Name: DMITRIY CARDENAS Pat. No: [id number] Study Date: 02/20/2020 7:36amDOB, Age: 10 1995, 24 Pregnancies: 1 LMP: 07/02/2019 GA by LMP: 33w2d [facility] NAME: DMITRIY CARDENAS Radiology Department PHYS: Lilian Bliss MD [address] : 1995 AGE: 24 SEX: F [place], [place] [address] LOC: MariДМИТРИЙ PHONE #: [phone] DATE: 02/20/2020 STATUS: REG ER FAX #: [phone] RAD NO: [id number] Page 1 Signed Report (CONTINUED) Patient Name: DMITRIY CARDENAS Unit No: [id number] EXAMS: CPT CODE: [id number] US FET BIO PH IL W/O NST [address] (Continued) GA by 1st: 33w2d GA Selected: 32w4d (From Known E) JOSEF: 04/12/2020 Referring MD: CEM DIANA Certification Officer: Brii Hobson RDMS CPT4: USBPPWONST Hist/Ind: LEAKING FLUID SCAN 4 Cervical Length: 2.2 cm Heart Rate: 166 bpm Amniotic Fluid Index: 07.1cm (Deepest Pocket) Biophysical Profile: 06/04 Breathin Tone: 2 Movement: 2 AFV: 2 CLINICAL SUMMARY Type of Gestation: DIAMNIOTIC,DICHORIONIC TWIN B Intrauterine in TRANSVERSE ,HEAD ON MATERNAL RIGHT motion and organs seen: somatic activity observed body and limb movements seen Regular cardiac rhythm observed presentation. Placental location: POSTERIOR Placental maturity : Grade 2 There is no evidence of placenta previa. Amniotic fluid volume is normal. PREVIOUSLY NOTED MARGINAL CORD INSERTION FOR TWIN B NOT IMAGED ON PRESENT EXAM Thank you for allowing us to participate in the care of this patient. Crow Leigh M.D. Electronic Signature 02/20/2020 08:19am at 0819 Reported and signed by: Nasreen Leigh MD CC: Lilian Beach MD Technologist: Brii Hobson RDMS Probe: Trnscrbd D/ (818) t.[email or web address] Orig Print D/T: S: 02/20/2020 (818) [facility] NAME: DMITRIY CARDENAS Radiology Department PHYS: Lilian Bliss MD [address] : 1995 AGE: 24 SEX: F [place] [address] LOC: MariДМИТРИЙ PHONE #: [phone] DATE: 02/20/2020 STATUS: REG ER FAX #: [phone] RAD NO: [id number] Page 2 Signed Report PatientName: DMITRIY CARDENAS Unit No: [id number] EXAMS: CPT CODE: [id number] US FET BIO PH IL W/O NST [address] ( Continued) [facility] NAME: DMITRIY CARDENAS Radiology Department PHYS: Lilian Bliss MD [address] : 1995 AGE: 24 SEX: F [place] [address] LOC: Shaji.ДМИТРИЙ PHONE #: [phone] EXAM DATE: 02/20/2020 STATUS: REG ER FAX #: [phone] RAD NO: [id number] Page 3 Signed ReportUR PROTEIN/CREATININE [id number] 07:24:00 Test Item Value Reference Range Interpretation Comments UR PROTEIN RANDOM (test code = 37.4 mg/dL PROTU) UR CREATININE RANDOM (test 126.0 mg/dL code = CREATU) PROTEIN/CREATININE RATIO (test 290.0 mg/gcrea <200 H code = P/CRATIO) COMPREHENSIVE METABOLIC [id number] 07:22:00 Test Item Value Reference Range Interpretation Comments SODIUM (test code = NA) 136 mEq/L 135-145 N POTASSIUM (test code = K) 4.3 mEq/L 3.5-5.0 N CHLORIDE (test code = CL) 101 mEq/L 100-115 N CARBON DIOXIDE (test code = CO2) 23 mEq/L 22-31 N ANION GAP (test code = GAP) 16.40 10-20 N GLUCOSE (test code = GLU) 118 mg/dL 65-110 H BLOOD UREA NITROGEN (test code = 8 mg/dL 7-18 N BUN) GLOMERULAR FILTRATION RATE (test 103 ml/min >60 N code = GFR) CREATININE (test code = CREAT) 0.7 mg/dL 0.5-1.0 N TOTAL PROTEIN (test code = PROT) 6.8 gm/dL 6.3-8.2 N ALBUMIN (test code = ALB) 2.7 gm/dL 3.4-4.8 L CALCIUM (test code = CA) 8.7 mg/dL 8.4-10.2 N BILIRUBIN TOTAL (test code = 0.1 mg/dL 0.2-1.0 L BILT) SGOT/AST (test code = AST) 16 units/L 15-37 N SGPT/ALT (test code = ALT) 18 units/L 12-78 N ALKALINE PHOSPHATASE TOTAL (test 152 units/L 46-116 H code = ALKP) CBC W/AUTO [id number] 07:01:00 Test Item Value Reference Range Interpretation Comments WHITE BLOOD CELL (test code = WBC) 14.9 K/mm3 6.6-12.1 H RED BLOOD CELL (test code = RBC) 4.54 M/mm3 3.45-5.01 N HEMOGLOBIN (test code = HGB) 11.9 g/dL 10.7-13.9 N HEMATOCRIT (test code = HCT) 36.8 % 32.1-42.1 N MEAN CELL VOLUME (test code = MCV) 81 fL 84.1-94.8 L MEAN CELL HGB (test code = MCH) 26.2 pg 27-35 L MEAN CELL HGB CONCETRATION (test 32.3 gm/dL 32.2-34.1 N code = MCHC) RED CELL DISTRIBUTION WIDTH (test 13.9 % 12.4-16.5 N code = RDW) PLATELET COUNT (test code = PLT) 304 K/mm3 133-385 N MEAN PLATELET VOLUME (test code = 9.8 fl 9.1-12.7 N MPV) NEUTROPHIL % (test code = NT%) 82.7 % 56.5-79.4 H LYMPHOCYTE % (test code = LY%) 10.6 % 14.3-34.3 L MONOCYTE % (test code = MO%) 5.6 % 5.1-10.4 N EOSINOPHIL % (test code = EO%) 0.5 % 0.1-3.0 N BASOPHIL % (test code = BA%) 0.2 % 0.1-1.0 N NEUTROPHIL # (test code = NT#) 12.3 K/mm3 LYMPHOCYTE # (test code = LY#) 1.6 K/mm3 MONOCYTE # (test code = MO#) 0.8 K/mm3 EOSINOPHIL # (test code = EO#) 0.08 K/mm3 BASOPHIL # (test code = BA#) 0.0 K/mm3 RBC MORPHOLOGY REQUIRED (test code NORMAL NORMAL = RBCM) PLATELET MORPHOLOGY REQUIRED (test NORMAL NORMAL code = PLTMR) URINALYSIS [id number] 06:57:00 Test Item Value Reference Range Interpretation Comments UA COLOR (test code = YELLOW YELLOW COLU) UA APPEARANCE (test code CLOUDY CLEAR A = APPU) UA GLUCOSE DIPSTICK (test NEGATIVE NEGATIVE code = DGLUU) UA BILIRUBIN DIPSTICK NEGATIVE NEGATIVE (test code = BILU) UA KETONE DIPSTICK (test NEGATIVE NEGATIVE code = KETU) UA SPECIFIC GRAVITY (test 1.020 1.001-1.035 N code = SGU) UA BLOOD DIPSTICK (test TRACE NEGATIVE A code = JOVANI) UA PH DIPSTICK (test code 7.0 5-9 = WARNER) UA PROTEIN DIPSTICK (test TRACE NEGATIVE A code = PROU) UA UROBILINIOGEN DIPSTICK 0.2 EU/dL <=1.0 (test code = URO) UA NITRITE DIPSTICK (test NEGATIVE NEGATIVE code = LAKEISHA) UA LEUKOCYTE ESTERASE 3+ NEGATIVE A DIPSTICK (test code = LEUU) UA WBC (test code = WBCU) TOO NUMEROUS TO CNT NONE SEEN A #/hpf UA RBC (test code = RBCU) 10-15 #/hpf NONE SEEN A UA EPITHELIAL CELLS (test MODERATE #/hpf NONE SEEN A code = EPIU) UA BACTERIA (test code = MANY #/hpf NONE SEEN A BACU) UA YEAST (test code = FEW #/hpf NONE SEEN A YEASTU) URINE SAMPLE: CLEAN CATCHNovel Coronavirus 18:54:00 Test Item Value Reference Range Interpretation Comments Novel Coronavirus Negative Negative Positive r esults are 2019 Inhouse (test indicativ e of the presence code = [id number]) ofSARS-CoV -2 RNA, clinical correlation wit h patient historyand othe r diagnostic info rmation is necessary to determinepatien t infection status. Positiv e results do not rule out bacterial infection or co -infection with other viru ses. Negative result s do not preclude SARS-C oV-2 infection andsh ould not be used as the keke e basis for patient managementdecis ions. Negative result s must be combined with otherclinical observations, p atient history, and epidemiological information . Detection of SARS-CoV-2 RNA may be affe cted bysample collec tion methods, storag e conditions, and /or stageof infection. Sheron l RNA mutations, vacc inations, antiviraltherap eutics, antibiotics, chemotherapeuti c orimmunosuppres debbie drugs have not been e valuated for effectson d etection. Results are for the identification of SARS-CoV-2 RNA usingthe Garces M2000 Sy stem under the FDA Emergen cy UseAuthorizatio n. The testing is perf ormed by personneltrajazzy d in the procedures for the Garces M2000 molecular diagnostic SARS-CoV-2 assa y in vitro. Testing Criteria: OtherOther: ANTEPARTUM PATIENTNovel Coronavirus 18:54:00 Test Item Value Reference Range Interpretation Comments Novel Coronavirus Negative Negative Positive r esults are 2019 Inhouse (test indicativ e of the presence code = [id number]) ofSARS-CoV -2 RNA, clinical correlation wit h patient historyand othe r diagnostic info rmation is necessary to determinepatien t infection status. Positiv e results do not rule out bacterial infection or co -infection with other viru ses. Negative result s do not preclude SARS-C oV-2 infection andsh ould not be used as the keke e basis for patient managementdecis ions. Negative result s must be combined with otherclinical observations, p atient history, and epidemiological information . Detection of SARS-CoV-2 RNA may be affe cted bysample collec tion methods, storag e conditions, and /or stageof infection. Sheron l RNA mutations, vacc inations, antiviraltherap eutics, antibiotics, chemotherapeuti c orimmunosuppres debbie drugs have not been e valuated for effectson d etection. Results are for the identification of SARS-CoV-2 RNA usingthe Referral.IM M2000 Sy stem under the FDA Emergen cy UseAuthorizatio n. The testing is perf ormed by deana fay in the procedures for the Referral.IM M2000 molecular diagnostic SARS-CoV-2 assa y in vitro. Testing Criteria: OtherOther: ANTEPARTUM PATIENTCOMPREHENSIVE METABOLIC PANEL 2020-02-05 11:07:00 Test Item Value Reference Range Interpretation Comments SODIUM (test code = NA) 135 mEq/L 135-145 N POTASSIUM (test code = K) 3.6 mEq/L 3.5-5.0 N CHLORIDE (test code = CL) 105 mEq/L 100-115 N CARBON DIOXIDE (test code = CO2) 26 mEq/L 22-31 N ANION GAP (test code = GAP) 7.50 10-20 L GLUCOSE (test code = GLU) 141 mg/dL 65-110 H BLOOD UREA NITROGEN (test code = 5 mg/dL 7-18 L BUN) GLOMERULAR FILTRATION RATE (test 88 ml/min >60 N code = GFR) CREATININE (test code = CREAT) 0.8 mg/dL 0.5-1.0 N TOTAL PROTEIN (test code = PROT) 5.9 gm/dL 6.3-8.2 L ALBUMIN (test code = ALB) 2.2 gm/dL 3.4-4.8 L CALCIUM (test code = CA) 8.4 mg/dL 8.4-10.2 N BILIRUBIN TOTAL (test code = 0.2 mg/dL 0.2-1.0 N BILT) SGOT/AST (test code = AST) 19 units/L 15-37 N SGPT/ALT (test code = ALT) 33 units/L 12-78 N ALKALINE PHOSPHATASE TOTAL (test 107 units/L 46-116 N code = ALKP) [id number] 11:07:00 Test Item Value Reference Range Interpretation Comments LIPASE (test code = LIP) 107 units/L 73-393 N CBC W/AUTO [id number] 10:43:00 Test Item Value Reference Range Interpretation Comments WHITE BLOOD CELL (test code = WBC) 8.2 K/mm3 6.6-12.1 N RED BLOOD CELL (test code = RBC) 3.73 M/mm3 3.45-5.01 N HEMOGLOBIN (test code = HGB) 10.1 g/dL 10.7-13.9 L HEMATOCRIT (test code = HCT) 31.7 % 32.1-42.1 L MEAN CELL VOLUME (test code = MCV) 85 fL 84.1-94.8 N MEAN CELL HGB (test code = MCH) 27.1 pg 27-35 N MEAN CELL HGB CONCETRATION (test 31.9 gm/dL 32.2-34.1 L code = MCHC) RED CELL DISTRIBUTION WIDTH (test 14.5 % 12.4-16.5 N code = RDW) PLATELET COUNT (test code = PLT) 232 K/mm3 133-385 N MEAN PLATELET VOLUME (test code = 9.3 fl 9.1-12.7 N MPV) NEUTROPHIL % (test code = NT%) 76.2 % 56.5-79.4 N LYMPHOCYTE % (test code = LY%) 15.8 % 14.3-34.3 N MONOCYTE % (test code = MO%) 5.6 % 5.1-10.4 N EOSINOPHIL % (test code = EO%) 1.3 % 0.1-3.0 N BASOPHIL % (test code = BA%) 0.2 % 0.1-1.0 N NEUTROPHIL # (test code = NT#) 6.2 K/mm3 LYMPHOCYTE # (test code = LY#) 1.3 K/mm3 MONOCYTE # (test code = MO#) 0.5 K/mm3 EOSINOPHIL # (test code = EO#) 0.11 K/mm3 BASOPHIL # (test code = BA#) 0.0 K/mm3 RBC MORPHOLOGY REQUIRED (test code NORMAL NORMAL = RBCM) PLATELET MORPHOLOGY REQUIRED (test NORMAL NORMAL code = PLTMR) CBC W/AUTO [id number] 11:10:00 Test Item Value Reference Range Interpretation Comments WHITE BLOOD CELL (test 9.9 K/mm3 6.6-12.1 Resul ts verified by code = WBC) repeat analysis RED BLOOD CELL (test 3.91 M/mm3 3.45-5.01 N code = RBC) HEMOGLOBIN (test code = 10.5 g/dL 10.7-13.9 L HGB) HEMATOCRIT (test code = 32.8 % 32.1-42.1 N HCT) MEAN CELL VOLUME (test 84 fL 84.1-94.8 L code = MCV) MEAN CELL HGB (test code 26.9 pg 27-35 L = MCH) MEAN CELL HGB 32.0 gm/dL 32.2-34.1 L CONCETRATION (test code = MCHC) RED CELL DISTRIBUTION 14.5 % 12.4-16.5 N WIDTH (test code = RDW) PLATELET COUNT (test 259 K/mm3 133-385 N code = PLT) MEAN PLATELET VOLUME 9.7 fl 9.1-12.7 N (test code = MPV) NEUTROPHIL % (test code 81.5 % 56.5-79.4 H = NT%) LYMPHOCYTE % (test code 11.4 % 14.3-34.3 L = LY%) MONOCYTE % (test code = 5.6 % 5.1-10.4 N MO%) EOSINOPHIL % (test code 0.7 % 0.1-3.0 N = EO%) BASOPHIL % (test code = 0.2 % 0.1-1.0 N BA%) NEUTROPHIL # (test code 8.1 K/mm3 = NT#) LYMPHOCYTE # (test code 1.1 K/mm3 = LY#) MONOCYTE # (test code = 0.6 K/mm3 MO#) EOSINOPHIL # (test code 0.07 K/mm3 = EO#) BASOPHIL # (test code = 0.0 K/mm3 BA#) RBC MORPHOLOGY REQUIRED NORMAL NORMAL (test code = RBCM) PLATELET MORPHOLOGY NORMAL NORMAL REQUIRED (test code = PLTMR) UR PROTEIN/CREATININE [id number] 09:11:00 Test Item Value Reference Range Interpretation Comments UR PROTEIN RANDOM (test code = 24.3 mg/dL PROTU) UR CREATININE RANDOM (test 112.6 mg/dL code = CREATU) PROTEIN/CREATININE RATIO (test 210.0 mg/gcrea <200 H code = P/CRATIO) Comments to [employer] Operator: [id number] Comment: URINE IN LABCOMPREHENSIVE METABOLIC [id number] 16:48:00 Test Item Value Reference Range Interpretation Comments SODIUM (test code = NA) 135 mEq/L 135-145 N POTASSIUM (test code = K) 3.7 mEq/L 3.5-5.0 N CHLORIDE (test code = CL) 99 mEq/L 100-115 L CARBON DIOXIDE (test code = CO2) 24 mEq/L 22-31 N ANION GAP (test code = GAP) 15.40 10-20 N GLUCOSE (test code = GLU) 93 mg/dL 65-110 N BLOOD UREA NITROGEN (test code = 8 mg/dL 7-18 N BUN) GLOMERULAR FILTRATION RATE (test 103 ml/min >60 N code = GFR) CREATININE (test code = CREAT) 0.7 mg/dL 0.5-1.0 N TOTAL PROTEIN (test code = PROT) 7.0 gm/dL 6.3-8.2 N ALBUMIN (test code = ALB) 2.9 gm/dL 3.4-4.8 L CALCIUM (test code = CA) 8.6 mg/dL 8.4-10.2 N BILIRUBIN TOTAL (test code = 0.4 mg/dL 0.2-1.0 BILT) SGOT/AST (test code = AST) 18 units/L 15-37 N SGPT/ALT (test code = ALT) 27 units/L 12-78 N ALKALINE PHOSPHATASE TOTAL (test 124 units/L 46-116 H code = ALKP) [id number] 16:36:00 Test Item Value Reference Range Interpretation Comments AMYLASE (test code = EVELYN) 73 units/L 30-110 N [id number] 16:36:00 Test Item Value Reference Range Interpretation Comments LIPASE (test code = LIP) 126 units/L 73-393 N CBC W/AUTO [id number] 16:25:00 Test Item Value Reference Range Interpretation Comments WHITE BLOOD CELL (test code = WBC) 16.7 K/mm3 6.6-12.1 H RED BLOOD CELL (test code = RBC) 4.60 M/mm3 3.45-5.01 N HEMOGLOBIN (test code = HGB) 12.5 g/dL 10.7-13.9 N HEMATOCRIT (test code = HCT) 38.0 % 32.1-42.1 N MEAN CELL VOLUME (test code = MCV) 83 fL 84.1-94.8 L MEAN CELL HGB (test code = MCH) 27.2 pg 27-35 N MEAN CELL HGB CONCETRATION (test 32.9 gm/dL 32.2-34.1 N code = MCHC) RED CELL DISTRIBUTION WIDTH (test 14.0 % 12.4-16.5 N code = RDW) PLATELET COUNT (test code = PLT) 315 K/mm3 133-385 N MEAN PLATELET VOLUME (test code = 9.7 fl 9.1-12.7 N MPV) NEUTROPHIL % (test code = NT%) 84.3 % 56.5-79.4 H LYMPHOCYTE % (test code = LY%) 8.9 % 14.3-34.3 L MONOCYTE % (test code = MO%) 5.8 % 5.1-10.4 N EOSINOPHIL % (test code = EO%) 0.1 % 0.1-3.0 N BASOPHIL % (test code = BA%) 0.2 % 0.1-1.0 N NEUTROPHIL # (test code = NT#) 14.1 K/mm3 LYMPHOCYTE # (test code = LY#) 1.5 K/mm3 MONOCYTE # (test code = MO#) 1.0 K/mm3 EOSINOPHIL # (test code = EO#) 0.01 K/mm3 BASOPHIL # (test code = BA#) 0.0 K/mm3 RBC MORPHOLOGY REQUIRED (test code NORMAL NORMAL = RBCM) PLATELET MORPHOLOGY REQUIRED (test NORMAL NORMAL code = PLTMR) URINALYSIS [id number] 16:23:00 Test Item Value Reference Range Interpretation Comments UA COLOR (test code = EMEKA YELLOW A COLU) UA APPEARANCE (test code TURBID CLEAR A = APPU) UA GLUCOSE DIPSTICK (test NEGATIVE NEG code = DGLUU) UA BILIRUBIN DIPSTICK NEGATIVE NEG (test code = BILU) UA KETONE DIPSTICK (test 2+ NEG A code = KETU) UA SPECIFIC GRAVITY (test 1.024 1.001-1.035 N code = SGU) UA BLOOD DIPSTICK (test 2+ NEG A code = JOVANI) UA PH DIPSTICK (test code 5.0 5-9 = WARNER) UA PROTEIN DIPSTICK (test 2+ NEG A code = PROU) UA UROBILINIOGEN DIPSTICK NEGATIVE mg/dL NEG (test code = URO) UA NITRITE DIPSTICK (test POSITIVE NEG A code = LAKEISHA) UA LEUKOCYTE ESTERASE 3+ NEG A DIPSTICK (test code = LEUU) UA WBC (test code = WBCU) TOO NUMEROUS TO CNT NONE SEEN A #/hpf UA RBC (test code = RBCU) TOO NUMEROUS TO CNT NONE SEEN A #/hpf UA EPITHELIAL CELLS (test TOO NUMEROUS TO CNT RARE-FEW A code = EPIU) #/HPF UA BACTERIA (test code = MANY /HPF RARE-FEW A BACU) UA MUCUS (test code = 4+ NONE SEEN MUCU) Comments to [employer]: LDO IURINE SAMPLE: CLEAN CATCHCHEMISTRY 7 PROFILE 2020-01-31 18:31:00 Test Item Value Reference Range Interpretation Comments SODIUM (test code = NA) 134 mEq/L 135-145 L POTASSIUM (test code = K) 3.7 mEq/L 3.5-5.0 N CHLORIDE (test code = CL) 100 mEq/L 100-115 N CARBON DIOXIDE (test code = CO2) 24 mEq/L 22-31 N ANION GAP (test code = GAP) 13.90 10-20 N GLUCOSE (test code = GLU) 86 mg/dL 65-110 N BLOOD UREA NITROGEN (test code = 8 mg/dL 7-18 N BUN) GLOMERULAR FILTRATION RATE (test 123 ml/min >60 N code = GFR) CREATININE (test code = CREAT) 0.6 mg/dL 0.5-1.0 N CALCIUM (test code = CA) 9.1 mg/dL 8.4-10.2 N LIVER [id number] 18:31:00 Test Item Value Reference Range Interpretation Comments TOTAL PROTEIN (test code = PROT) 6.6 gm/dL 6.3-8.2 N ALBUMIN (test code = ALB) 2.7 gm/dL 3.4-4.8 L BILIRUBIN TOTAL (test code = 0.2 mg/dL 0.2-1.0 N BILT) BILIRUBIN DIRECT (test code = 0.1 mg/dL <0.2 N BILD) SGOT/AST (test code = AST) 16 units/L 15-37 N SGPT/ALT (test code = ALT) 20 units/L 12-78 N ALKALINE PHOSPHATASE TOTAL (test 114 units/L 46-116 N code = ALKP) URIC [id number] 18:31:00 Test Item Value Reference Range Interpretation Comments URIC ACID (test code = URIC) 3.8 mg/dL 2.6-6.0 N CBC W/AUTO [id number] 18:10:00 Test Item Value Reference Range Interpretation Comments WHITE BLOOD CELL (test code = WBC) 14.4 K/mm3 6.6-12.1 H RED BLOOD CELL (test code = RBC) 4.36 M/mm3 3.45-5.01 N HEMOGLOBIN (test code = HGB) 11.7 g/dL 10.7-13.9 N HEMATOCRIT (test code = HCT) 35.8 % 32.1-42.1 N MEAN CELL VOLUME (test code = MCV) 82 fL 84.1-94.8 L MEAN CELL HGB (test code = MCH) 26.8 pg 27-35 L MEAN CELL HGB CONCETRATION (test 32.7 gm/dL 32.2-34.1 N code = MCHC) RED CELL DISTRIBUTION WIDTH (test 14.2 % 12.4-16.5 N code = RDW) PLATELET COUNT (test code = PLT) 286 K/mm3 133-385 N MEAN PLATELET VOLUME (test code = 9.9 fl 9.1-12.7 N MPV) NEUTROPHIL % (test code = NT%) 76.2 % 56.5-79.4 N LYMPHOCYTE % (test code = LY%) 13.9 % 14.3-34.3 L MONOCYTE % (test code = MO%) 8.2 % 5.1-10.4 N EOSINOPHIL % (test code = EO%) 0.8 % 0.1-3.0 N BASOPHIL % (test code = BA%) 0.1 % 0.1-1.0 N NEUTROPHIL # (test code = NT#) 11.0 K/mm3 LYMPHOCYTE # (test code = LY#) 2.0 K/mm3 MONOCYTE # (test code = MO#) 1.2 K/mm3 EOSINOPHIL # (test code = EO#) 0.11 K/mm3 BASOPHIL # (test code = BA#) 0.0 K/mm3 RBC MORPHOLOGY REQUIRED (test code NORMAL NORMAL = RBCM) PLATELET MORPHOLOGY REQUIRED (test NORMAL NORMAL code = PLTMR) URINALYSIS [id number] 18:10:00 Test Item Value Reference Range Interpretation Comments UA COLOR (test code = YELLOW YELLOW COLU) UA APPEARANCE (test code CLOUDY CLEAR A = APPU) UA GLUCOSE DIPSTICK (test NEGATIVE NEG code = DGLUU) UA BILIRUBIN DIPSTICK NEGATIVE NEG (test code = BILU) UA KETONE DIPSTICK (test NEGATIVE NEG code = KETU) UA SPECIFIC GRAVITY (test 1.005 1.001-1.035 N code = SGU) UA BLOOD DIPSTICK (test 2+ NEG A code = JOVANI) UA PH DIPSTICK (test code 6.0 5-9 = WARNER) UA PROTEIN DIPSTICK (test 1+ NEG A code = PROU) UA UROBILINIOGEN DIPSTICK NEGATIVE mg/dL NEG (test code = URO) UA NITRITE DIPSTICK (test POSITIVE NEG A code = LAKEISHA) UA LEUKOCYTE ESTERASE 3+ NEG A DIPSTICK (test code = LEUU) UA WBC (test code = WBCU) 21-30 #/hpf NONE SEEN A UA RBC (test code = RBCU) 11-15 #/hpf NONE SEEN A UA EPITHELIAL CELLS (test TOO NUMEROUS TO CNT RARE-FEW A code = EPIU) #/HPF UA BACTERIA (test code = MANY /HPF RARE-FEW A BACU) UA MUCUS (test code = RARE NONE SEEN MUCU) URINE SAMPLE: CLEAN CATCHUR PROTEIN/CREATININE [id number] 18:09:00 Test Item Value Reference Range Interpretation Comments UR PROTEIN RANDOM (test code 63.4 mg/dL = PROTU) UR CREATININE RANDOM (test 32.0 mg/dL code = CREATU) PROTEIN/CREATININE RATIO 1980.0 mg/gcrea <200 H (test code = P/CRATIO) - US PREG UT [id number] 11:11:00 Patient Name: DMITRIY CARDENAS ANN Unit No: [id number] EXAMS: CPT CODE: [id number] US PREG [place] TRANSVAGINAL [address] [facility] [address], [place] [address] LIMITED OBSTETRICAL ULTRASOUND REPORT FETUS A Pat. Name: DMITRIY CARDENAS Pat. No: [id number] Study Date: 01/12/2020 10:15am , Age: 10 1995, 24 Preg nancies: 1 LMP: 07/02/2019 GA by LMP: 27w5d GA Selected: 27w0d (From Known E) JOSEF: 04/12/2020 Referring MD: Annabel Andersen Certification Officer: Alejandrina Murguia RDMS, RVT CPT4: USPRUTTRVG Hist/Ind: CERVICAL LENGTH SCAN 3 Cervical Length: 3.4 cm Heart Rate: 146 bpm Amniotic Fluid Index: 10.5cm (Deepest Pocket) MATERNAL ANATOMY Ovaries LxHxW (cm) Right 3.3 x 2.2 x 2.6 Vol: 9.9cc Left 3.8 x 1.7 x 2.3 Vol: 7.8cc ------ CLINICAL SUMMARY Type of Gestation::DIAMNIOTIC, DICHORIONIC TWIN A Intrauterine in transverse LOW HEAD ON MATERNAL LEFT presentation. motion and organs seen: somatic activity observed body and limb movements seen Regular cardiac rhythm observed Placental location: Anterior Placental maturity : Grade 2 There is no evidence of placenta previa. Amniotic fluid volume is normal. Uterus and adnexa: No significant abnormality is seen FOR BABY A Cervix length CERVIX MEASURES 3.4CM. Thank you for allowing us to participate in the care of this patient. . Crow Leigh M.D. Electronic Signature 11:11am FETUS B [facility] NAME: DMITRIY CARDENAS ANN Radiology Department PHYS: Annabel Davison MD [address] : 1995 AGE: 24 SEX: F [place], [place] [address] LOC: [id number] APHONE #: [phone] EXAM DATE: 01/12/2020 STATUS: ADM IN FAX #: [phone] RAD NO: [id number] Page 1 Signed Report (CONTINUED) Patient Name: DMITRIY CARDENAS ANN Unit No: [id number] EXAMS: CPT CODE: [id number] [facility] UT TRANSVAGINAL [address] (Continued) Pat. Name: DMITRIY CARDENAS ANN Pat. No:[id number] Study Date: 01/12/2020 10:15am , Age: 10 1995, 24 Pregnancies: 1 LMP: 07/02/2019 GA by LMP: 27w5d GA Selected: 27w0d (From Known E) JOSEF: 04/12/2020 Referring MD: CEM DIANA Certification Officer: Alejandrina Murguia RDMS, RVT CPT4: USPREGLTD Hist/Ind: CERVICAL LENGTH SCAN 3 Cervical Length: 3.4 cm Heart Rate: 124 bpm Amniotic Fluid Index: 08.4cm (Deepest Pocket) MATERNAL ANATOMY Ovaries LxHxW (cm) Right 3.3 x 2.2 x 2.6 Vol: 9.9cc Left 3.8 x 1.7 x 2.3 Vol: 7.8cc ---- CLINICAL SUMMARY Type of Gestation::DIAMNIOTIC, DICHORIONIC TWIN B Intrauterine in transverse HIGH HEAD ON MATERNAL RIGHT presentation. motion and organs seen: somatic activity observed body and limb movements seen Regular cardiac rhythmobserved Placental location: Posterior Placental maturity : Grade 2 There is no evidence of placentaprevia. Amniotic fluid volume is normal. Uterus and adnexa: MARGINAL CORD INSERTION FOR BABY B NOTED Thank you for allowing us to participate in the care of this patient. . Crow Leigh M.D. Electronic Signature 01/12/2020 11:11am at 1111 Reported and signed by: Nasreen Leigh MD [facility] NAME: DMITRIY CARDENAS ANN Radiology Department PHYS: Annabel Davison MD [address] : 1995 AGE: 24 SEX: F [place] [address] LOC: F.3014 A PHONE #: [phone] DATE: 01/12/2020 STATUS: ADM IN FAX #: [phone] RAD NO: [id number] Page 2 Signed Report (CONTINUED) Patient Name: DMITRIY CARDENAS ANN Unit No: [id number] EXAMS: CPT CODE: [id number] [facility] UT TRANSVAGINAL [address] (Continued) CC: Annabel Andersen MD Technologist: Alejandrina Murguia RDMS, RVT Probe:[id number] Trnscrbd D/ (1111) t.JUAN CARLOS Orig Print D/T: S: 01/13/2020 (0927) [facility] NAME: DMITRIY CARDENAS ANN Radiology Department PHYS: Annabel Davison MD [address] : 1995 AGE: 24 SEX: F [place] [address] LOC: F.301 APHONE #: [phone] EXAM DATE: 01/12/2020 STATUS: ADM IN FAX #: [phone] RAD NO: [id number] Page 3Signed Report Patient Name: DMITRIY CARDENAS ANN Unit No: [id number] EXAMS: CPT CODE: [id number] PREG UT TRANSVAGINAL 82594 (Continued) [facility] NAME: DMITRIY CARDENAS Radiology Department PHYS: Annabel Davison MD [address] : 1995 AGE: 24 SEX: F [place] [address] LOC: FAriella3014 A PHONE #: [phone] EXAM DATE: 01/12/2020 STATUS: ADM IN FAX #: [phone] RAD NO: [id number] Page 4 Signed Report- US [id number] 11:11:00 Patient Name: DMITRIY CARDENAS ANN Unit No: [id number] EXAMS: CPT CODE: [id number] [place] LTD [address] [facility] [place] [facility] [address], [place] [address] LIMITED OBSTETRICAL ULTRASOUND REPORT FETUS A Pat. Name: DMITRIY CARDENAS ANN Pat. No: [id number] Study Date: 01/12/2020 10:15am , Age: 10 1995, 24 Pregnancies: 1 LMP: 07/02/2019 GA by LMP: 27w5d GA Selected: 27w0d (From Known E) JOSEF: 04/12/2020 Referring MD: CEM DIANA Certification Officer: Alejnadrina Murguia RDMS, TAJT CPT4: USPREGLTD Hist/Ind: CERVICAL LENGTH SCAN 3 Cervical Length: 3.4 cm Heart Rate: 146 bpm Amniotic Fluid Index: 10.5cm (Deepest Pocket) MATERNAL ANATOMY Ovaries LxHxW (cm) Right 3.3 x 2.2 x 2.6 Vol: 9.9cc Left 3.8 x 1.7x 2.3 Vol: 7.8cc CLINICAL SUMMARY Type of Gestation::DIAMNIOTIC, DICHORIONIC TWIN A Intrauterine in transverse LOW HEAD ON MATERNAL LEFT presentation. motion and organs seen: somatic activity observed body and limb movements seen Regular cardiac rhythm observed Placental location: Anterior Placental maturity : Grade 2 There is no evidence of placenta previa. Amniotic fluid volume is normal. Uterus and adnexa: No significant abnormality is seen FOR BABY A Cervix length CERVIX MEASURES 3.4CM. Thank you for allowing us to participatein the care of this patient. . Crow Leigh M.D. Electronic Signature 01/12/2020 11:11am FETUS B [facility] NAME: DMITRIY CARDENAS Radiology Department PHYS: Cem Dubon MD [address] : 1995 AGE: 24 SEX: F [place], [place] [address] LOC: Terry4 A PHONE#: [phone] EXAM DATE: 01/12/2020 STATUS: ADM IN FAX #: [phone] RAD NO: [id number] Page 1 Signed Report (CONTINUED) Patient Name: CARDENASDMITRIY NORTH ANN Unit No: [id number] EXAMS: CPT CODE: [id number] LTD 05100 (Continued) Pat. Name: DMITRIY CARDENAS DIANN Pat. No: [id number] Study Date: 01/12/2020 10:15am , Age: 10 1995, 24 Pregnancies: 1 LMP: 07/02/2019 GA by LMP: 27w5d GA Selected: 27w0d (From Known E) JOSEF: 04/12/2020 Referring MD: CEM DIANA Certification Officer: Alejandrina Murguia RDMS, T CPT4: USPREGLTD Hist/Ind: CERVICAL LENGTH SCAN 3 Cervical Length: 3.4 cm Heart Rate: 124 bpm Amniotic Fluid Index: 08.4cm (Deepest Pocket) MATERNAL ANATOMY Ovaries LxHxW (cm) Right 3.3 x 2.2 x 2.6 Vol: 9.9cc Left 3.8 x 1.7 x 2.3 Vol: 7.8cc CLINICAL SUMMARY Type of Gestation::DIAMNIOTIC, DICHORIONIC TWIN B Intrauterine in transverse HIGH HEAD ON MATERNAL RIGHT presentation. motion and organs seen: somatic activity observed body and limb movements seen Regular cardiac rhythm observed Placental location: Posterior Placental maturity : Grade 2 There is no evidence of placenta previa. Amniotic fluid volume is normal. Uterus and adnexa: MARGINAL CORD INSERTION FOR BABY B NOTED Thank you for allowing us to participate in the care of this patient. . Crow Leigh M.D. Electronic Signature 01/12/2020 11:11am at 1111 Reported and signed by: Nasreen Leigh MD [facility] NAME: [facility] Radiology Department PHYS: Cem Dubon MD [address] : 1995 AGE: 24 SEX: [place] [address] LOC: F.3014 A PHONE #: [phone] EXAM DATE: 01/12/2020 STATUS: ADM IN FAX #: [phone] RAD NO: [id number] Page 2 Signed Report (CONTINUED) Patient Name: DMITRIY CARDENAS ANN Unit No: [id number] EXAMS: CPT CODE: [id number] [place] LTD [address]494 (Continued) CC: Cem Diana MD; Annabel Andersen MD Technologist: Alejandrina Murguia RDMS, RVT Probe: Trnscrbd D/ (1111) t.SDR.CER Orig Print D/T: S: 01/12/2020 (1111) [facility] NAME: DMITRIY CARDENAS ANN Radiology Department PHYS: Cem Dubon MD [address] : 1995 AGE: 24 SEX: F [place] [address] LOC: Terry4 A PHONE #: [phone] EXAM DATE: 01/12/2020 STATUS: ADM IN FAX #: [phone] RAD NO: [id number] Page 3 Signed Rep ort Patient Name: DMITRIY CARDENAS ANN Unit No: [id number] EXAMS: CPT CODE: [id number] [place] LTD [address]141 (Continued) [facility] NAME: DMITRIY CARDENAS ANN Radiology Department PHYS: Cem Dubon MD [address] : 1995 AGE: 24 SEX: F [place] [address] LOC: F.3014 A PHONE #: [phone] EXAM DATE: 01/12/2020 STATUS: ADM IN FAX #: [phone] RAD NO: [id number] Page 4 Signed ReportMAGNESIUM 2020-01-12 02:26:00 Test Item Value Reference Range Interpretation Comments MAGNESIUM (test code = 3.1 mg/dL 1.8-2.4 H Resul ts verified by MAG) repeat analysis - US FLW [id number] 18:04:00 Patient Name: DMITRIY CARDENAS ANN Unit No: [id number] EXAMS: C[place]: [id number] [place] [address] [facility] [place] [facility] [address], [place] [address] OBSTETRICAL MULTI- FETUS ULTRASOUND REPORT FETUS A Pat. Name: DMITRIY CARDENAS ANN Pat. No: [id number] Study Date: 01/11/2020 3:42pm , Age: 10 1995, 24 Pregnancies: 1 LMP: 07/02/2019 GA by LMP: 27w4d GA by 1st: 27w4d GA by US: 28w1d GA Selected: 27w4d (LMP) JOSEF: 04/07/2020 Referring MD: Gudelia Constantino M.D. Certification Officer: Shaunna Gonzalez RDMS CPT4: USPREGFU Hist/Ind: 1ST SCAN CTX GROWTH MEASUREMENTS AGE GROWTH EVALUATION Measurement GA Range Srce %for GA Ratios ----- ---- ------- BPD 7.8 cm 31w4d (41r0y-53b4i) Hadl BPD >95 FL/BPD 0.67 (0.71 - 0.87* HC 27.1 cm 29w2d (24u9w-66f4t) Hadl HC 85% FL/AC 0.22 (0.20 - 0.24) APD 7.4 cm APD HC/AC 1.15 (1.00 - 1.18) TAD 7.6 cm TAD CI 0.89 (0.70 - 0.86* AC 23.6 cm 27w6d (85f1e-20j2h) Hadl AC 54% FL 5.2 cm 27w3d (97d0c-71w8b) Hadl FL 45% HL 4.7 cm 27w5d (38k0e-95j8t) Yogesh HL52% GA for sonogram 28w1d (80k3t-67b7d) Weight Estimate: based on (HC,AC,FL) Hadlock Weight: 1174 gm (4305-7691) Hadlo : 2lbs, 9oz Normal: 1086 gm (726-1584) Brenne Wt% 57% for 27.6 wks Cervical Length: 4.0 cm Heart Rate: 137 bpm Amniotic Fluid Index: 06.1cm (Deepest Pocket) CLINICAL SUMMARY Type of Gestation: Twin A Intrauterine in vertex presentation. size is appropriate for gestational age. motion and organs seen: heart motion seen Placental location: Anterior Placental maturity : Grade2 There is no evidence of placenta previa. Amniotic fluid volume is normal. Uterus and adnexa: [facility] NAME: DMITRIY CARDENAS ANN Radiology Department PHYS: Fatuma Estrada MD [address] : 1995 AGE: 24 SEX: F [place], [place] [address] LOC: Jose Calderon PHONE #: [phone] EXAM DATE: 01/11/2020 STATUS: ADM IN FAX #: [phone] RAD NO: [id number] Page 1 Signed Report (CONTINUED) Patient Name: DMITRIY CARDENAS ANN Unit No: [id number] EXAMS: CPT CODE: [id number] [place] [address] (Continued) No significant abnormality is seen. Cervix length not well seen. Daly Hayes M.D. Electronic Signature 01/11/2020 06:04pm FETUS B Pat. Name: DMITRIY CARDENAS Pat. No: [id number] Study Date: 01/11/2020 3:42pm , Age: 10 1995, 24 Pregnancies: 1 LMP: 07/02/2019 GA by LMP: 27w4d GA by 1st: 27w4d GA by US: 27w6d GA Selected: 27w4d (LMP) JOSEF: 04/07/2020 Referring MD: Gudelia Constantino M.D. Certification Officer: Shaunna Gonzalez RDMS CPT4: USPREGFU Hist/Ind:1ST SCAN CTX GROWTH MEASUREMENTS AGE GROWTH EVALUATION Measurement GA Range Srce %for GA Ratios ----- ---- ------- BPD 7.5 cm 30w2d (67d7e-00e6z) Hadl BPD 91% FL/BPD 0.67 (0.71 - 0.87* HC 27.0 cm 29w1d (81p2c-75b9a) Hadl HC 82% FL/AC 0.22 (0.20 - 0.24) APD 7.2 cm APDHC/AC 1.18 (1.00 - 1.18* TAD 7.3 cm TAD CI 0.84 (0.70 - 0.86) AC 22.8 cm 27w0d (24w6d- 29w2d) Hadl AC39% FL 5.0 cm 26w4d (94u6q-34s9b) Hadl FL 27% HL 4.3 cm 25w5d (30o5l-71e5i) Yogesh HL 19% GA for sonogram 27w6d (08b3e-96q8a) Weight Estimate: based on (BPD,HC,AC,FL) Hadlock Weight: 1077 gm (920-1234) Hadloc : 2lbs, 5oz Normal: 1086 gm (726-1584) Brenne Wt% 49% for 27.6 wks Cervical Length: 4.0 cm Heart Rate: 143 bpm Amniotic Fluid Index: 06.3cm (09.4- 22.7)* CLINICAL SUMMARY Type of Gestation: Twin B Intrauterine in transverse rt presentation. size is appropriate for gestational age. motion and organs seen: heart motion seen Long bones are relatively short Placental location: Anterior Placental maturity : Grade 2 [facility] NAME: DMITRIY CARDENAS ANN Radiology Department PHYS: Gudelia Estrada MD [address] : 1995 AGE: 24 SEX: F [place], [place] [address] LOC: FAriella3014 A PHONE #: [phone] EXAM DATE: 01/11/2020 STATUS: ADM IN FAX #: [phone] RAD NO: [id number] Page 2 Signed Report (CONTINUED) Patient Name: GERRI CARDENASRILEY NORTH ANN Unit No: [id number] EXAMS: CPT CODE: [id number] [place] [address] (Continued) There is no evidence of placenta previa. Amniotic fluid volume is normal. Uterus and adnexa: No significant abnormality is seen. Cervix length not well seen. Daly Hayes M.D. Electronic Signature 01/11/2020 06:04pm at 1804 Reported and signed by: Daly Hayes MD CC: Gudelia Constantino; Annabel Andersen MD Technologist: Shaunna Gonzalez RDMS Probe: Trnscrbd D/ (1803) t.TOMMIER.NMG Orig Print D/T: S: 01/11/2020 (1803) [facility] NAME: DMITRIY CARDENAS ANN Radiology Department PHYS: Gudelia Estrada MD [address] : 1995 AGE: 24 SEX: [place] [address] LOC: F.3014 A PHONE #: [phone] EXAM DATE: 01/11/2020 STATUS: ADM IN FAX #: [phone] RAD NO: [id number] Page 3 SignedReport Patient Name: DMITRIY CARDENAS ANN Unit No: [id number] EXAMS: CPT CODE: [id number] US FLW UP 15562 (Continued) [facility] NAME: RONALDDMITRIY NORTH ANN RadiologyDepartment PHYS: Gudelia Estrada MD [address] : 1995 AGE: 24 SEX: [place] [address] LOC: F.3014 A PHONE #: [phone] EXAM DATE: 01/11/2020 STATUS: ADM IN FAX #: [phone] RAD NO: [id number] Page 4 Signed ReportAB HIV 1 15:28:00 Test Item Value Reference Range Interpretation Comments AB HIV 1 2 (test NONREACTIVE NONREACTIVE Done by [facility] code = [id number]) 4th Gen HIV Ag/Ab Combo Screen IS CONSENT FORM SIGNED FOR HIV TESTING? TIMMYURE (ROM) [id number] 12:28:00 Test Item Value Reference Range Interpretation Comments AMNISURE (ROM) TEST (test code = NON-RUPTURED NON-RUPTURE AMNI) : *Amnisure QC OK? YESAMNISURE (ROM) [id number] 12:28:00 Test Item Value Reference Range Interpretation Comments AMNISURE (ROM) TEST (test code = AMNI) . NON-RUPTURE - US FLW [id number] 12:06:00 Patient Name: DMITRIY CARDENAS ANN Unit No: [id number] EXAMS: CPT CODE: [id number] [place] [address] [facility] [place] [facility] [address], [place] [address] OBSTETRICAL MULTI-FETUS ULTRASOUND REPORT FETUS A Pat. Name: DMITRIY CARDENAS ANN Pat. No: [id number] Study Date: 01/11/2020 11:12am , Age: 10 1995, 24 LMP: 07/02/2019 GA by LMP: 27w4d GA Selected: 27w4d () JOSEF: 04/07/2020 Referring MD: Annabel Andersen Certification Officer: Genevieve Ash RDMS CPT4: USPREGFU Hist/Ind: SCAN 1 CONTRACTIONS LOSS OF FLUID ---- Heart Rate: 155 bpm Amniotic Fluid Index: 07.7cm (Deepest Pocket) CLINICAL SUMMARY Type of Gestation: DIAMNIOTIC, DICHORIONIC TWIN A Intrauterine inTRANSVERSE HEAD ON MATERNAL RIGHT presentation. motion and organs seen: somatic activityobserved body and limb movements seen Regular cardiac rhythm observed Placental location: Anterior Placental maturity : Grade 1 There is no evidence of placenta previa. Amniotic fluid volume is normal. Uterus and adnexa: No significant abnormality is seen. Cervix length ?? 7MM CERVIX SEEN. [facility] for allowing us to participate in the care of this patient. Crow Leigh M.D. Electronic Signature 01/11/2020 12:06pm FETUS B Pat. Name: DMITRIY CARDENAS ANN Pat. No: [id number] Study Date: 01/11/2020 11:12am , Age: 10 1995, 24 LMP: 07/02/2019 GA by LMP: 27w4d GA Selected: 27w4d () JOSEF: 04/07/2020 Referring MD: Ganesh Jin [facility] NAME: DMITRIY CARDENAS MARY ANNE RAYMOND Radiology Department PHYS: Annabel Davison MD [address] : 1995 AGE: 24 SEX: F [place], [place] [address] LOC: Mari3014 A PHONE #: [phone] EXAM DATE: 01/11/2020 STATUS: ADM IN FAX #: [phone] RAD NO: [id number] Page 1 Signed Report (CONTINUED) Patient Name: DMITRIY CARDENAS ANN Unit No: [id number] EXAMS: CPT CODE: [id number] [place] FLW UP 78054 (Continued) Certification Officer: Cooper Ash RDMS Hist/Ind: SCAN 1 CONTRACTIONS LOSS OF FLUID Heart Rate: 143 bpm Amniotic Fluid Index: 07.6cm (Deepest Pocket) CLINICAL SUMMARYType of Gestation: DIAMNIOTIC, DICHORIONIC TWIN B Intrauterine in TRANSVERSE HEAD ON MATERNAL RIGHT presentation. motion and organs seen: somatic activity observed body and limb movements seen Regular cardiac rhythm observed Placental location: Posterior Placental maturity : Grade 1 There is no evidence of placenta previa. Amniotic fluid volume is normal. Uterus and adnexa: No significant abnormality is seen. Cervix length ?? 7MM CERVIX SEEN. Thank you for allowing us to participate in the care of this patient. Crow Leigh M.D. Electronic Qzykaljhu16/16/2020 12:06pm at 1206 Reported and signed by: Nasreen Leigh MD CC: Annabel Andersen MD Technologist: Shaunna Gonzalez RDMS Probe: Trnscrbd D/ (1206) Pio Orig Print D/T: S: 01/13/2020 (1142) [facility] NAME: DMITRIY CARDENAS ANN Radiology Department PHYS: Annabel Davison MD [address] : 1995 AGE: 24 SEX: [place], [place] [address] LOC: Mari3014 A PHONE #: [phone] EXAM DATE: 01/11/2020 STATUS: ADM IN FAX #: [phone] RAD NO: [id number] Page 2 Signed ReportPatient Name: DMITRIY CARDENAS ANN Unit No: [id number] EXAMS: CPT CODE: [id number] [place] [address] (Continued) [facility] NAME: DMITRIY CARDENAS Radiology Department PHYS: Annabel Davison MD [address] : 1995 AGE: 24 SEX: [place] [address] LOC: Jose A PHONE #: [phone] EXAM DATE: 01/11/2020 STATUS: ADM IN FAX #: [phone] RAD NO: [id number] Page 3 Signed Report- US [id number] 12:06:00 Patient Name: DMITRIY CARDENAS ANN Unit No: [id number] EXAMS: CPT CODE: [id number] US PREGNANCYLTD [address] [facility] [place] [facility] [address], [place] [address] OBSTETRICAL MULTI-FETUS ULTRASOUND REPORT FETUS A Pat. Name: DMITRIY CARDENAS Pat. No: [id number] Study Date: 01/11/2020 11:12am , Age: 10 1995, 24 LMP: GA by LMP: 27w4d GA Selected: 27w4d () JOSEF: 04/07/2020 Referring MD: Annabel Andersen Certification Officer: Genevieve Ash RDMS CPT4: USPREGFU Admitting MD: Annabel Andersen Hist/Ind: SCAN 1 CONTRACTIONS LOSS OF FLUID H eart Rate: 155 bpm Amniotic Fluid Index: 07.7cm (Deepest Pocket) CLINICAL SUMMARY Type of Gestation: DIAMNIOTIC, DICHORIONIC TWIN A Intrauterine in TRANSVERSE HEAD ON MATERNAL RIGHT presentation. motion and organs se en: somatic activity observed body and limb movements seen Regular cardiac rhythm observed Placental location: Anterior Placental maturity : Grade 1 There is no evidence of placenta previa.Amniotic fluid volume is normal. Uterus and adnexa: No significant abnormality is seen. Cervix length ?? 7MM CERVIX SEEN. Thank you for allowing us to participate in the care of this patient. Crow Leigh M.D. <Electronic Signature> 01/11/2020 12:06pm FETUS B Pat. Name: GERRI CARDENASRILEY RAYMOND Pat. No: [id number] Study Date: 01/11/2020 11:12am [facility] NAME: DMITRIY CARDENAS Radiology Department PHYS: Gudelia Estrada MD [address] : 1995 AGE: 24 SEX: F [place], [place] [address] LOC: Jose A PHONE #: [phone] EXAM DATE: 01/11/2020 STATUS: ADM IN FAX #: [phone] RAD NO: [id number] Page 1 Signed Report (CONTINUED) Patient Name: DMITRIY CARDENAS ANN Unit No: [id number] EXAMS: CPT CODE: [id number] [facility] [address] (Continued) , Age: 10 1995, 24 LMP: 07/02/2019 GA by LMP: 27w4d GA Selected: 27w4d () JOSEF: 04/07/2020 Referring MD: Ganesh Jin Certification Officer: Genevieve Ash RDMS Hist/Ind: SCAN 1 CONTRACTIONS LOSS OF FLUID Heart Rate: 143 bpm Amniotic Fluid Index: 07.6cm (Deepest Pocket) CLINICAL SUMMARY Type of Gestation: DIAMNIOTIC, DICHORIONIC TWIN B Intrauterine in TRANSVERSE HEAD ON MATERNAL RIGHT presentation. motion and organs seen: somatic activity observed body and limb movements seen Regular cardiac rhythm observed Placental location:Posterior Placental maturity : Grade 1 There is no evidence of placenta previa. Amniotic fluid volume is normal. Uterus and adnexa: No significant abnormality is seen. Cervix length ?? 7MM CERVIX SEEN.Thank you for allowing us to participate in the care of this patient. Crow Leigh M.D. <Electronic Signature> 01/11/2020 12:06pm " Manually signed by Nasreen Leigh MD Reported and signed by: Nasreen Leigh MD CC: Gudelia Constantino Technologist: Genevieve Ash RDMS Probe: Trnscrbd D/ (0972) FJUANACR Advanced To Signed Dt/Tm/User: 01/13/20 (1159) DEBBY Orig Print D/T: S: 01/13/2020 (3038) [facility] NAME: DMITRIY CARDENAS ANN Radiology Department PHYS: BRUTA - Douige,Gudelia L MD [address] : 1995 AGE: 24 SEX: F [place], [place] [address] LOC: F.3014 A PHONE #: [phone] EXAM DATE: 01/11/2020 STATUS:ADM IN FAX #: [phone] RAD NO: [id number] Page 2 Signed Report Patient Name: DMITRIY CARDENAS ANN Unit No: [id number] EXAMS: CPT CODE: [id number] (Continued) [facility] NAME: DMITRIY CARDENAS ANN Radiology Department PHYS: Gudelia Estrada MD [address] : 1995 AGE: 24 SEX: F [place], [place] [address] LOC: F.3014 A PHONE #: [phone] EXAM DATE: 01/11/2020 STATUS: ADM IN FAX #: [phone] RAD NO: [id number] Page 3 Signed Report COMPREHENSIVE METABOLIC [id number] 11:21:00 Test Item Value Reference Range Interpretation Comments SODIUM (test code = NA) 137 mEq/L 135-145 N POTASSIUM (test code = K) 4.1 mEq/L 3.5-5.0 N CHLORIDE (test code = CL) 104 mEq/L 100-115 N CARBON DIOXIDE (test code = CO2) 24 mEq/L 22-31 N ANION GAP (test code = GAP) 12.90 10-20 N GLUCOSE (test code = GLU) 90 mg/dL 65-110 N BLOOD UREA NITROGEN (test code = 6 mg/dL 7-18 L BUN) GLOMERULAR FILTRATION RATE (test 152 ml/min >60 N code = GFR) CREATININE (test code = CREAT) 0.5 mg/dL 0.5-1.0 N TOTAL PROTEIN (test code = PROT) 6.5 gm/dL 6.3-8.2 N ALBUMIN (test code = ALB) 2.7 gm/dL 3.4-4.8 L CALCIUM (test code = CA) 8.2 mg/dL 8.4-10.2 L BILIRUBIN TOTAL (test code = BILT) 0.1 mg/dL 0.2-1.0 L SGOT/AST (test code = AST) 11 units/L 15-37 L SGPT/ALT (test code = ALT) 20 units/L 12-78 N ALKALINE PHOSPHATASE TOTAL (test 98 units/L 46-116 N code = ALKP) URINALYSIS [id number] 10:28:00 Test Item Value Reference Range Interpretation Comments UA COLOR (test code = YELLOW YELLOW COLU) UA APPEARANCE (test code Slightly-Cloudy CLEAR = APPU) UA GLUCOSE DIPSTICK (test NEGATIVE NEG code = DGLUU) UA BILIRUBIN DIPSTICK NEGATIVE NEG (test code = BILU) UA KETONE DIPSTICK (test NEGATIVE NEG code = KETU) UA SPECIFIC GRAVITY (test 1.009 1.001-1.035 N code = SGU) UA BLOOD DIPSTICK (test 2+ NEG A code = JOVANI) UA PH DIPSTICK (test code 7.0 5-9 = WARNER) UA PROTEIN DIPSTICK (test 1+ NEG A code = PROU) UA UROBILINIOGEN DIPSTICK NEGATIVE mg/dL NEG (test code = URO) UA NITRITE DIPSTICK (test POSITIVE NEG A code = LAKEISHA) UA LEUKOCYTE ESTERASE 3+ NEG A DIPSTICK (test code = LEUU) UA WBC (test code = WBCU) TOO NUMEROUS TO CNT NONE SEEN A #/hpf UA RBC (test code = RBCU) 11-15 #/hpf NONE SEEN A UA EPITHELIAL CELLS (test FEW #/HPF RARE-FEW code = EPIU) UA BACTERIA (test code = FEW /HPF RARE-FEW BACU) UA MUCUS (test code = RARE NONE SEEN MUCU) URINE SAMPLE: CLEAN CATCHCBC W/AUTO [id number] 10:22:00 Test Item Value Reference Range Interpretation Comments WHITE BLOOD CELL (test code = WBC) 13.6 K/mm3 6.6-12.1 H RED BLOOD CELL (test code = RBC) 4.18 M/mm3 3.45-5.01 N HEMOGLOBIN (test code = HGB) 11.3 g/dL 10.7-13.9 N HEMATOCRIT (test code = HCT) 34.8 % 32.1-42.1 N MEAN CELL VOLUME (test code = MCV) 83 fL 84.1-94.8 L MEAN CELL HGB (test code = MCH) 27.0 pg 27-35 N MEAN CELL HGB CONCETRATION (test 32.5 gm/dL 32.2-34.1 N code = MCHC) RED CELL DISTRIBUTION WIDTH (test 14.0 % 12.4-16.5 N code = RDW) PLATELET COUNT (test code = PLT) 288 K/mm3 133-385 N MEAN PLATELET VOLUME (test code = 9.6 fl 9.1-12.7 N MPV) NEUTROPHIL % (test code = NT%) 78.5 % 56.5-79.4 N LYMPHOCYTE % (test code = LY%) 13.3 % 14.3-34.3 L MONOCYTE % (test code = MO%) 6.2 % 5.1-10.4 N EOSINOPHIL % (test code = EO%) 0.8 % 0.1-3.0 N BASOPHIL % (test code = BA%) 0.2 % 0.1-1.0 N NEUTROPHIL # (test code = NT#) 10.7 K/mm3 LYMPHOCYTE # (test code = LY#) 1.8 K/mm3 MONOCYTE # (test code = MO#) 0.8 K/mm3 EOSINOPHIL # (test code = EO#) 0.11 K/mm3 BASOPHIL # (test code = BA#) 0.0 K/mm3 RBC MORPHOLOGY REQUIRED (test code NORMAL NORMAL = RBCM) PLATELET MORPHOLOGY REQUIRED (test NORMAL NORMAL code = PLTMR) [id number] 10:21:00 Test Item Value Reference Range Interpretation Comments FIBRONECTIN NEGATIVE Among symp tomatic (test code = FFN) women, zara vated levels (>0.05 ug/mL) o ffFN between 24 week s and 34 weeks, 6 days i ndicate increasedrisk o f delivery in <= 7 or <= 14 days from samplecollectio n. Similarly, annette g asymptomatic wo men, elevated levels of fFNbetween 22 w eeks and 30 weeks, 6 day s indicate increa sedrisk of delivery in <= 34 weeks, 6 days o f gestation.
[2022-08-17] MEDS ORDERED: LIDOCAINE VISCOUS 2% SOLN 15 ML UDC ONE (15:20)
[2022-08-17] MEDS ORDERED: MAGNES/ALUMIN/SIMET 30ML UCUP ONE (15:20)
--- NOTE | 2022-08-17 16:02 | ER ---
Nurse's Notes [facility] Name: Alida Marcos Age: 26 yrs Sex: Female : 1995 Arrival Date: 08/17/2022 Time: 14:24 Bed 11 Private MD: Diagnosis: Acute laryngitis Presentation: 08/17 14:50 Chief complaint: Patient states: Pt reports sore throat and laryngitis x1 week, kb3 blisters on tongue and roof of mouth x2 days. Coronavirus screen: Vaccine status: Patient reports being unvaccinated. Client denies travel out of the [place] in the last 14 days. Ebola Screen: Patient negative for fever greater than or equal to 101.5 degrees Fahrenheit, and additional compatible Ebola Virus Disease symptoms Patient denies exposure to infectious person. Patient denies travel to an Ebola-affected area in the 21 days before illness onset. No symptoms or risks identified at this time. Initial Sepsis Screen: Does the patient meet any 2 criteria? No. Patient's initial sepsis screen is negative. Does the patient have a suspected source of infection? No. Patient's initial sepsis screen is negative. Risk Assessment: Do you want to hurt yourself or someone else? Patient reports no desire to harm self or others. Onset of symptoms was August 10, 2022. 14:50 Method Of Arrival: Ambulatory kb3 14:50 Acuity: SUSHILA 4 kb3 Triage Assessment: 14:51 General: Appears in no apparent distress. uncomfortable, ill, Behavior is calm, kb3 cooperative. Pain: Complains of pain in hard palate, soft palate, uvula, left aspect of posterior pharynx, right aspect of posterior pharynx and tongue Pain does not radiate. Pain currently is 10 out of 10 on a pain scale. Quality of pain is described as burning, Pain began 1 week. 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 Last tetanus immunization: up to date. - Social history:: Smoking status: Patient denies any tobacco usage or history of. Screenin:36 Abuse screen: Denies threats or abuse. Denies injuries from another. Nutritional hb screening: No deficits noted. Tuberculosis screening: No symptoms or risk factors identified. Fall Risk None identified. Assessment: 15:10 General: SEE TRIAGE ASSESSMENT. hb 16:13 Reassessment: Patient appears in no apparent distress at this time. Patient and/or hb family updated on plan of care and expected duration. Pain level reassessed. Patient is alert, oriented x 3, equal unlabored respirations, skin warm/dry/pink. Vital Signs: 14:50 Pulse 94; Resp 20; Temp 100.3; Pulse Ox 99% ; Weight 107.95 kg; Height 5 ft. 3 in. kb3 (160.02 cm); Pain 10/10; 14:55 BP 136 / 90; kb3 14:50 Body Mass Index 42.16 (107.95 kg, 160.02 cm) kb3 ED Course: 14:24 Patient arrived in ED. am2 14:38 Winnie Pickard [facility]C [facility]. kb 14:38 Cam Nicholson MD is Attending Physician. kb 14:51 Triage completed. kb3 14:51 Arm band placed on right wrist. kb3 15:36 Alejandrina Rogel, RN is Primary Nurse. hb 15:36 Patient has correct armband on for positive identification. hb 16:13 No provider procedures requiring assistance completed. Patient did not have IV access hb during this emergency room visit. Administered Medications: 15:24 Drug: GI Cocktail without - (Maalox Suspension 30 ml, Lidocaine Liquid 2 % 15 hb ml) Route: PO; Medication: 16:14 VIS not applicable for this client. hb Outcome: 16:01 Discharge ordered by . kb 16:13 Discharged to home ambulatory. hb 16:13 Condition: stable 16:13 Discharge instructions given to patient, Instructed on discharge instructions, follow up and referral plans. medication usage, Demonstrated understanding of instructions, follow-up care, medications. 16:14 Patient left the ED. hb Signatures: Winnie Pickard FNP-C FNP-Alejandrina Coleman, RN RN Griselda Mora am2 Oma Quintanilla RN RN kb3
--- NOTE | 2022-08-17 16:02 | EDPHYS ---
Physician Documentation [facility] Name: Alida Marcos Age: 26 yrs Sex: Female : 1995 Arrival Date: 08/17/2022 Time: 14:24 Bed 11 Private MD: ED Physician Cam Nicholson HPI: 08/17 15:53 This 26 yrs old Female presents to ER via Ambulatory with complaints of Sore kb Throat, hoarse voice. 15:53 The patient presents with sore throat. The patient describes throat pain as constant. kb Onset: The symptoms/episode began/occurred last week. Severity of symptoms: At their worst the symptoms were moderate, in the emergency department the symptoms are unchanged. Modifying factors: The symptoms are alleviated by nothing, the symptoms are aggravated by swallowing, Patient's oral intake status: good. Associated signs and symptoms: Pertinent positives: Sore throat. The patient has not experienced similar symptoms in the past. The patient has not recently seen a physician. 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 Last tetanus immunization: up to date. - Social history:: Smoking status: Patient denies any tobacco usage or history of. ROS: 15:51 Constitutional: Negative for fever, chills, and weight loss. kb 15:51 ENT: Positive for hoarseness, sore throat. 15:51 All other systems are negative. Exam: 15:51 Constitutional: This is a well developed, well nourished patient who is awake, alert, kb and in no acute distress. Head/Face: Normocephalic, atraumatic. Cardiovascular: Regular rate and rhythm with a normal S1 and S2. No gallops, murmurs, or rubs. No pulse deficits. Respiratory: Respirations even and unlabored. No increased work of breathing. Talking in full sentences Skin: Warm, dry with normal turgor. Normal color. MS/ Extremity: Pulses equal, no cyanosis. Neurovascular intact. Full, normal range of motion. Neuro: Awake and alert, GCS 15, oriented to person, place, time, and situation. Moves all extremities. Normal gait. Psych: Awake, alert, with orientation to person, place and time. Behavior, mood, and affect are within normal limits. 15:51 ENT: Posterior pharynx: Airway: normal, no evidence of obstruction, Tonsils: are normal in appearance, Uvula: normal, midline, swelling, is not appreciated, erythema, that is mild, exudate, is not appreciated. Vital Signs: 14:50 Pulse 94; Resp 20; Temp 100.3; Pulse Ox 99% ; Weight 107.95 kg; Height 5 ft. 3 in. kb3 (160.02 cm); Pain 10/10; 14:55 BP 136 / 90; kb3 14:50 Body Mass Index 42.16 (107.95 kg, 160.02 cm) kb3 MDM: 15:04 Patient medically screened. kb 15:51 Data reviewed: vital signs, nurses notes. Data interpreted: Pulse oximetry: on room air kb is 99 %. Interpretation: normal. Counseling: I had a detailed discussion with the patient and/or guardian regarding: the historical points, exam findings, and any diagnostic results supporting the discharge/admit diagnosis, lab results, the need for outpatient follow up, a family practitioner, to return to the emergency department if symptoms worsen or persist or if there are any questions or concerns that arise at home. 08/17 15:10 Order name: Strep; Complete Time: 15:46 kb 08/17 15:47 Order name: Throat Culture EDMS Administered Medications: 15:24 Drug: GI Cocktail without - (Maalox Suspension 30 ml, Lidocaine Liquid 2 % 15 hb ml) Route: PO; Disposition Summary: 08/17/22 16:01 Discharge Ordered Location: Home kb Condition: Stable kb Diagnosis - Acute laryngitis kb Followup: kb - With: Emergency Department - When: As needed - Reason: Worsening of condition Followup: kb - With: Private Physician - When: 2 - 3 days - Reason: Recheck today's complaints, Continuance of care, Re-evaluation by your physician Discharge Instructions: - Discharge Summary Sheet kb - Laryngitis kb Forms: - Medication Reconciliation Form kb - Thank You Letter kb - Antibiotic Education kb - Prescription Opioid Use kb Addendum: 08/21/2022 04:08 Co-signature as Attending Physician, Cam Nicholson MD I agree with the assessment and c ordoñez plan of care. Signatures: Dispatcher [employer] Winnie Pineda, BENCH WORKER APPRENTICE-C SUE-Cam Valencia MD MD cha Baxter, Heather, RN RN hb Oma Quintanilla RN RN kb3
[2022-08-17 16:28] VITALS: TEMP 100.3; O2SAT 99
[2022-08-17 16:29] VITALS: BP 136/90
== END 2022-08-17 16:14 | disposition home or self-care (01) ==
LOC: ER 14:19
DX: J04.0 Acute laryngitis (principal)
CPT/HCPCS: 87070; 87081; 99283